=== PATIENT | male | born 1995 | race African-American/Black ===

== ENCOUNTER 2018-11-15 12:28 | Emergency (ER) | payer SELFPAY ==
[~2018-11-15] VITALS: Ht 167.6 cm; Wt 68.9 kg
[2018-11-15 12:48] VITALS: BP 132/77
[2018-11-15] MEDS ORDERED: IPRATRPIUM/ALBUTEROL 0.5/2.5MG 3 ML NEBU. NEB ONE (13:15)
[2018-11-15 13:50] LABS: INFLUENZA A PATIENT NEGATIVE (NEGATIVE); INFLUENZA B PATIENT NEGATIVE (NEGATIVE)
[2018-11-15] MEDS ORDERED: ONDANSETRON PF 4 MG/2 ML VIAL. IV ONE (14:15)
[2018-11-15] MEDS ORDERED: IV NORMAL SALINE 1000ML BAG 1,000 ML IV ONE (14:15)
[2018-11-15 14:26] LABS: BASO % 1 % (0-3); EOS % 0 % (0-3); HEMATOCRIT 44.2 % (39.0-53.0); HEMOGLOBIN 15.1 g/dL (13.0-17.5); LYMPH # 0.7 x10^3/uL (1.0-4.8); LYMPH % 11 % (24-48); MEAN CORPUSCULAR HEMOGLOBIN 33 pg (25-35); MEAN CORPUSCULAR HGB CONC 34 g/dL (31-37); MEAN CORPUSCULAR VOLUME 96 fL (79-100); MONO # 0.8 x10^3/uL (0.0-1.1); MONO % 12 % (0-9); NEUT # 4.9 x10^3uL (1.8-7.7); NEUT % 77 % (31-73); PLATELET COUNT 285 x10^3/uL (140-400); RED BLOOD COUNT 4.63 x10^6/uL (4.30-5.70); RED CELL DISTRIBUTION WIDTH 12.9 % (11.5-14.5); WHITE BLOOD COUNT 6.4 x10^3/uL (4.0-11.0)
[2018-11-15 14:35] LABS: CALCIUM 9.6 mg/dL (8.5-10.1); CREATININE 0.8 mg/dL (0.7-1.3); GFR 143.7; POTASSIUM 4.3 mmol/L (3.5-5.1)
[2018-11-15 14:40] LABS: ALBUMIN 4.4 g/dL (3.4-5.0); ALBUMIN/GLOBULIN RATIO 1.2 (1.0-1.7); TOTAL BILIRUBIN 0.3 mg/dL (0.2-1.0); TOTAL PROTEIN 8.2 g/dL (6.4-8.2)
[2018-11-15 15:24] LABS: AMYLASE 47 U/L (25-115); LIPASE 86 U/L (73-393)
[2018-11-15] MEDS ORDERED: diphenhydrAMINE 50 MG/ML VIAL IVP ONE (15:30)
[2018-11-15] MEDS ORDERED: methylPREDNISolone SOD SUCC PF 125 MG/2 ML VIAL. IV ONE (15:30)
[2018-11-15] MEDS ORDERED: IOHEXOL 300 MG/ML 100ML VIAL. IV ONE (16:00)
--- NOTE | 2018-11-15 16:16 | RAD ---
EXAM: Abdomen and pelvis CT with intravenous contrast. HISTORY: Abnormal liver enzymes laboratory values. TECHNIQUE: Computed tomographic images of the abdomen and pelvis were obtained following the administration of 75 cc Isovue 370 intravenous contrast. Multiplanar reformatting was performed. *One or more of the following individualized dose reduction techniques were utilized for this examination: 1. Automated exposure control. 2. Adjustment of the mA and/or kV according to patient size. 3. Use of iterative reconstruction technique. COMPARISON: None. FINDINGS: Evaluation of the lower thorax is unremarkable. No hepatic lesion is seen. The gallbladder, pancreas and adrenal glands are unremarkable. There are small splenules adjacent to the spleen. The kidneys are unremarkable. The appendix is surgically absent. There is mild colonic wall thickening likely due to relative under distention. No convincing colitis is seen. There is no bowel obstruction. The urinary bladder is unremarkable. There is no lymphadenopathy. There is no suspicious osseous lesion. IMPRESSION: No acute abdominal or pelvic finding. Electronically signed by: Esha Guzman MD (11/15/2018 4:12 PM) [id number]
[2018-11-15] MEDS ORDERED: ONDA4TAB12 PO (17:41)
--- NOTE | 2018-11-15 17:42 | PHYS DOC ---
Past Medical History Past Medical History: Asthma Past Surgical History: Appendectomy Alcohol Use: None Drug Use: None Adult General Chief Complaint Chief Complaint: FLU SYMPTOM HPI HPI Patient is a 22 year old male who presents with nausea that began today, and flu-like symptoms x 2 weeks. He denies earaches, but states he has had headaches , body aches and fever. He has been using OTC remedies with moderate results. Review of Systems Review of Systems Constitutional: See history of present Eyes: Denies change in visual acuity, redness, or eye pain [] HENT: Denies nasal congestion or sore throat [] Respiratory: See history of present illness Cardiovascular: No additional information not addressed in HPI [] GI: See history of present illness : Denies dysuria or hematuria [] Musculoskeletal: Denies back pain or joint pain [] Integument: Denies rash or skin lesions [] Neurologic: Denies headache, focal weakness or sensory changes [] Endocrine: Denies polyuria or polydipsia [] All other systems were reviewed and found to be within normal limits, except as documented in this note. Current Medications Current Medications Current Medications Medications (Trade) Dose Ordered Sig/Jojo Start Time Stop Time Status Last Admin Dose Admin Albuterol/ Ipratropium (Duoneb) 3 ml 1X ONCE 11/15/18 13:15 11/15/18 13:17 DC 11/15/18 13:27 3 ML Diphenhydramine HCl (Benadryl) 50 mg 1X ONCE 11/15/18 15:30 11/15/18 15:31 DC 11/15/18 15:47 50 MG Iohexol (Omnipaque 300 Mg/ml) 75 ml 1X ONCE 11/15/18 16:00 11/15/18 16:04 DC 11/15/18 16:01 75 ML Methylprednisolone Sodium Succinate (SOLU-Medrol 125MG VIAL) 125 mg 1X ONCE 11/15/18 15:30 11/15/18 15:31 DC 11/15/18 15:46 125 MG Ondansetron HCl (Zofran) 4 mg 1X ONCE 11/15/18 14:15 11/15/18 14:16 DC 11/15/18 14:21 4 MG Sodium Chloride 1,000 ml @ 1,000 mls/hr 1X ONCE 11/15/18 14:15 11/15/18 15:14 DC 11/15/18 14:21 1,000 MLS/HR Allergies Allergies Allergies Coded Allergies Type Severity Reaction Last Updated Verified iodine Allergy Intermediate Swelling 11/15/18 Yes Physical Exam Physical Exam Constitutional: Well developed, well nourished, no acute distress, non-toxic appearance. [] HENT: Normocephalic, atraumatic, bilateral external ears normal, oropharynx moist, no oral exudates, nose normal. [] Eyes: PERRLA, EOMI, conjunctiva normal, no discharge. [] Neck: Normal range of motion, no tenderness, supple, no stridor. [] Cardiovascular:Heart rate regular rhythm, no murmur [] Lungs & Thorax: Bilateral breath sounds clear to auscultation with no leases or rhonchi [] Abdomen: Bowel sounds normal, firm, mild generalized tenderness, no masses, no pulsatile masses. [] Skin: Warm, dry, no erythema, no rash. [] Back: No tenderness, no CVA tenderness. [] Extremities: No tenderness, no cyanosis, no clubbing, ROM intact, no edema. [] Neurologic: Alert and oriented X 3, normal motor function, normal sensory function, no focal deficits noted. [] Psychologic: Affect normal, judgement normal, mood normal. [] Current Patient Data Vital Signs Vital Signs Date Time Temp Pulse Resp B/P (MAP) Pulse Ox O2 Delivery O2 Flow Rate FiO2 11/15/18 13:27 97 Room Air 11/15/18 12:48 100.1 105 22 132/77 (95) 100.1 Lab Values Laboratory Tests Test 11/15/18 13:00 11/15/18 14:10 Influenza Type A Antigen Negative (NEGATIVE) Influenza Type B Antigen Negative (NEGATIVE) White Blood Count 6.4 x10^3/uL (4.0-11.0) Red Blood Count 4.63 x10^6/uL (4.30-5.70) Hemoglobin 15.1 g/dL (13.0-17.5) Hematocrit 44.2 % (39.0-53.0) Mean Corpuscular Volume 96 fL (79-100) Mean Corpuscular Hemoglobin 33 pg (25-35) Mean Corpuscular Hemoglobin Concent 34 g/dL (31-37) Red Cell Distribution Width 12.9 % (11.5-14.5) Platelet Count 285 x10^3/uL (140-400) Neutrophils (%) (Auto) 77 % (31-73) H Lymphocytes (%) (Auto) 11 % (24-48) L Monocytes (%) (Auto) 12 % (0-9) H Eosinophils (%) (Auto) 0 % (0-3) Basophils (%) (Auto) 1 % (0-3) Neutrophils # (Auto) 4.9 x10^3uL (1.8-7.7) Lymphocytes # (Auto) 0.7 x10^3/uL (1.0-4.8) L Monocytes # (Auto) 0.8 x10^3/uL (0.0-1.1) Eosinophils # (Auto) 0.0 x10^3/uL (0.0-0.7) Basophils # (Auto) 0.0 x10^3/uL (0.0-0.2) Sodium Level 137 mmol/L (136-145) Potassium Level 4.3 mmol/L (3.5-5.1) Chloride Level 97 mmol/L (98-107) L Carbon Dioxide Level 26 mmol/L (21-32) Anion Gap 14 (6-14) Blood Urea Nitrogen 9 mg/dL (8-26) Creatinine 0.8 mg/dL (0.7-1.3) Estimated GFR (Cockcroft-Gault) 143.7 BUN/Creatinine Ratio 11 (6-20) Glucose Level 91 mg/dL (70-99) Calcium Level 9.6 mg/dL (8.5-10.1) Total Bilirubin 0.3 mg/dL (0.2-1.0) Aspartate Amino Transferase (AST) 209 U/L (15-37) H Alanine Aminotransferase (ALT) 213 U/L (16-63) H Alkaline Phosphatase 67 U/L (46-116) Total Protein 8.2 g/dL (6.4-8.2) Albumin 4.4 g/dL (3.4-5.0) Albumin/Globulin Ratio 1.2 (1.0-1.7) Amylase Level 47 U/L (25-115) Lipase 86 U/L (73-393) Laboratory Tests 11/15/18 14:10 Laboratory Tests 11/15/18 14:10 EKG EKG [] Radiology/Procedures Radiology/Procedures [] PATIENT: PATTIE PEGUERO ACCOUNT: [id number] : 1995 LOCATION: ER AGE: 22 SEX: M EXAM STATUS: REG ER ORD. PHYSICIAN: ROSAMARIA VERAS APRN REASON: abdominal pain, elevated liver enzymes PROCEDURE: CT ABD PELV W/ IV CONTRST ONLY EXAM: Abdomen and pelvis CT with intravenous contrast. HISTORY: Abnormal liver enzymes laboratory values. TECHNIQUE: Computed tomographic images of the abdomen and pelvis were obtained following the administration of 75 cc Isovue 370 intravenous contrast. Multiplanar reformatting was performed. *One or more of the following individualized dose reduction techniques were utilized for this examination: 1. Automated exposure control. 2. Adjustment of the mA and/or kV according to patient size. 3. Use of iterative reconstruction technique. COMPARISON: None. FINDINGS: Evaluation of the lower thorax is unremarkable. No hepatic lesion is seen. The gallbladder, pancreas and adrenal glands are unremarkable. There are small splenules adjacent to the spleen. The kidneys are unremarkable. The appendix is surgically absent. There is mild colonic wall thickening likely due to relative under distention. No convincing colitis is seen. There is no bowel obstruction. The urinary bladder is unremarkable. There is no lymphadenopathy. There is no suspicious osseous lesion. IMPRESSION: No acute abdominal or pelvic finding. Electronically signed by: Esha Guzman MD (11/15/2018 4:12 PM) [facility] DICTATED and SIGNED BY: ESHA GUZMAN MD DATE: 11/15/18 1609 Course & Med Decision Making Course & Med Decision Making Pertinent Labs and Imaging studies reviewed. (See chart for details) []The patient is negative for influenza. The patient is elevated liver enzymes. Patient does state that he drinks fairly heavily. He was counseled to refrain from drinking alcohol and follow up with his primary care provider for a recheck. He is in agreement with this plan. Dragon Disclaimer Dragon Disclaimer This electronic medical record was generated, in whole or in part, using a voice recognition dictation system. Departure Departure Impression: Primary Impression: Nausea & vomiting Additional Impression: Elevated liver enzymes Disposition: 01 HOME, SELF-CARE Condition: STABLE Referrals: UNKNOWN PCP NAME (PCP) Patient Instructions: Liver Panel, Nausea and Vomiting Additional Instructions: Use the medications to control your nausea and increase your fluid intake. Follow-up with your primary care provider within the week for recheck. If worsening return to the emergency department. Scripts Ondansetron (ONDANSETRON ODT) 4 Mg Tab.rapdis 1 TAB PO PRN Q6-8HRS for nausea, #16 TAB Prov: ROSAMARIA VERAS APRN 11/15/18 Problem Qualifiers ROSAMARIA VERAS APRN Nov 15, 2018 17:42
== END 2018-11-15 17:50 | disposition home or self-care (01) ==
LOC: ER 12:28
DX: R11.2 Nausea with vomiting, unspecified (principal); R74.8 Abnormal levels of other serum enzymes; J45.909 Unspecified asthma, uncomplicated; Z90.89 Acquired absence of other organs; Z91.041 Radiographic dye allergy status
CPT/HCPCS: 36415; 74177; 80053; 82150; 83690; 85025; 87804; 94640; 96361; 96374; 96375; 99284; J1200; J2405; J2930; J7030; J7620; Q9967

== ENCOUNTER 2019-06-23 02:57 | Inpatient (IN) | payer SELFPAY ==
[~2019-06-23] VITALS: Ht 167.6 cm; Wt 71.5 kg
[~2019-06-23 02:57] MED LIST: ONDA4TAB12 PO
[2019-06-23] MEDS ORDERED: ONDANSETRON PF 4 MG/2 ML VIAL. IV PRN ×2 (03:15→11:45)
[2019-06-23] MEDS ORDERED: IV NORMAL SALINE 1000ML BAG 1,000 ML IV ONE ×2 (03:15→04:30)
[2019-06-23] MEDS ORDERED: levETIRAcetam 1,000 MG in IV DEXTROSE 5% 100ML 100 ML IV ONE (03:15)
[2019-06-23] MEDS ORDERED: ACETAMINOPHEN 325 MG TABLET. PO PRN (03:15)
[2019-06-23 03:27] LABS: BASO % 1 % (0-3); EOS # 0.1 x10^3/uL (0.0-0.7); EOS % 1 % (0-3); HEMATOCRIT 39.8 % (39.0-53.0); HEMOGLOBIN 13.6 g/dL (13.0-17.5); LYMPH # 1.2 x10^3/uL (1.0-4.8); LYMPH % 20 % (24-48); MEAN CORPUSCULAR HEMOGLOBIN 34 pg (25-35); MEAN CORPUSCULAR HGB CONC 34 g/dL (31-37); MEAN CORPUSCULAR VOLUME 100 fL (79-100); MONO # 0.8 x10^3/uL (0.0-1.1); MONO % 13 % (0-9); NEUT # 3.8 x10^3/uL (1.8-7.7); NEUT % 65 % (31-73); PLATELET COUNT 216 x10^3/uL (140-400); RED BLOOD COUNT 3.99 x10^6/uL (4.30-5.70); RED CELL DISTRIBUTION WIDTH 12.6 % (11.5-14.5); WHITE BLOOD COUNT 5.9 x10^3/uL (4.0-11.0)
[2019-06-23 03:37] LABS: CALCIUM 9.3 mg/dL (8.5-10.1); CREATININE 1.2 mg/dL (0.7-1.3); GFR 89.3; POTASSIUM 3.7 mmol/L (3.5-5.1)
--- NOTE | 2019-06-23 03:40 | PHYS DOC ---
Past Medical History Past Medical History: Asthma Past Surgical History: Appendectomy Smoking: Cigarettes Alcohol Use: Occasionally Drug Use: Marijuana Adult General Chief Complaint Chief Complaint: SEIZURE HPI HPI 23-year-old male presents via EMS with report of seizure-like activity which occurred just prior to arrival. Patient had just been discharged from emergency department for after seizure-like activity. No prior history of seizures. Patient had been fully worked up with negative CT scan. Patient had had a elevated lactic acid which improved after IV fluid hydration. There was concern patient had a true seizure. Patient was to follow-up as outpatient with neurology. Spouse reports waking at 0200 noting patient with tonic-clonic activity lasting approximately 1 minute. EMS was called. Patient did bite his tongue and have some bloody discharge from mouth. Denies vomiting. Denies loss of bladder. Review of Systems Review of Systems Constitutional: Denies fever or chills Eyes: Denies redness or eye pain HENT: Denies nasal congestion or sore throat; reports bit his tongue Respiratory: Denies cough or shortness of breath Cardiovascular: Denies chest pain or palpitations GI: Denies abdominal pain, nausea, or vomiting : Denies dysuria or hematuria Musculoskeletal: Denies back pain or joint pain Integument: Denies rash or skin lesions Neurologic: Denies headache, focal weakness or sensory changes; reports seizure- like activity Complete systems were reviewed and found to be within normal limits, except as documented in this note. Current Medications Current Medications Allergies Allergies Allergies Coded Allergies Type Severity Reaction Last Updated Verified iodine Allergy Intermediate Swelling 11/15/18 Yes Physical Exam Physical Exam Constitutional: Well developed, well nourished, no acute distress, non-toxic appearance HENT: Normocephalic, atraumatic, oropharynx moist, abrasion noted to right lateral tongue Eyes: PERRL, EOMI, conjunctiva normal, no discharge, no nystagmus Neck: Normal range of motion, no tenderness, supple no meningeal signs Cardiovascular: Heart rate normal, regular rhythm Lungs & Thorax: Bilateral breath sounds clear to auscultation, no wheezing Abdomen: Soft, no tenderness Skin: Warm, dry, no erythema, no rash Extremities: No tenderness, ROM intact, no edema Neurologic: Alert and oriented X 3, normal motor function, normal sensory function, no focal deficits noted Psychologic: Affect normal, judgement normal Current Patient Data Vital Signs Vital Signs Date Time Temp Pulse Resp B/P (MAP) Pulse Ox O2 Delivery O2 Flow Rate FiO2 06/23/19 02:57 98.1 70 16 135/81 (99) 92 Room Air 98.1 Lab Values EKG EKG [] Radiology/Procedures Radiology/Procedures [] Course & Med Decision Making Course & Med Decision Making Pertinent Lab studies reviewed. (See chart for details) Patient presents with seizure-like activity for which patient had recently been seen and evaluated in the emergency department. Spouse reports a second tonic-c lonic witnessed seizure like activity. Labs obtained and posted to chart. Lactic acid re-elevated despite normalizing prior to previous discharge. CPK increased. LFT elevation stable. Empiric Keppra initiated. Patient requiring admission for further evaluation and treatment. Discussed with Dr. Palm (hospitalist) who is in agreement with admission. Consultation to neurology keaton hdez. Discussed findings and plan with patient and family, who acknowledge understanding and agreement. Dragon Disclaimer Dragon Disclaimer This electronic medical record was generated, in whole or in part, using a voice recognition dictation system. Departure Departure Impression: Primary Impression: Seizure-like activity Additional Impressions: Failure of outpatient treatment Lactic acidosis Elevated CPK Elevated LFTs Disposition: ADMITTED INPATIENT Admitting Physician: NEENA James) Condition: STABLE Referrals: NO PCP (PCP) Problem Qualifiers MICK BELTRAN DO Jun 23, 2019 03:40
[2019-06-23 03:44] LABS: ALBUMIN 3.9 g/dL (3.4-5.0); ALBUMIN/GLOBULIN RATIO 1.1 (1.0-1.7); MAGNESIUM 2.1 mg/dL (1.8-2.4); TOTAL PROTEIN 7.3 g/dL (6.4-8.2)
[2019-06-23 04:37] VITALS: BP 142/78
[2019-06-23 07:00] VITALS: BP 148/88
--- NOTE | 2019-06-23 08:27 | PDOC2 ---
NEUROLOGY CONSULT Date of Admission Date of Admission DATE: 06/23/19 TIME: 08:22 Reason for Consult Reason for Consult: seizure Referring Physician Referring Physician: Dr. Palm Source Source: Chart review, Patient History of Present Illness History of Present Illness Patient is a 23-year-old right-handed male who has had 2 seizures. He came to emergency department last night with a seizure and was discharged, then returned early this morning with a second seizure. These were generalized convulsions and the second one did have tongue biting. There was postictal confusion. Patient admits to using marijuana and alcohol and is also under stress because of recent of his son and his mom 6 years ago. There is no history of stroke or head trauma. He is feeling better now. 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, occasionally uses marijuana and alcohol, no tobacco, has significant other Current Medications Current Medications Current Medications Sodium Chloride 1,000 ml @ 1,000 mls/hr 1X ONCE IV Last administered on at 03:28; Start 06/23/19 at 03:15; Stop 06/23/19 at 04:14; Status DC Levetiracetam 1000 mg/Dextrose 110 ml @ 440 mls/hr 1X ONCE IV Last administered on 06/23/19at 03:28; Start 06/23/19 at 03:15; Stop 06/23/19 at 03:29; Status DC Ondansetron HCl (Zofran) 4 mg PRN Q8HRS PRN IV NAUSEA/VOMITING; Start 06/23/19 at 03:15; Stop 06/24/19 at 03:14 Acetaminophen (Tylenol) 650 mg PRN Q4HRS PRN PO FEVER; Start 06/23/19 at 03:15; Stop 06/24/19 at 03:14 Lorazepam (Ativan Inj) 0.5 mg 1X ONCE IV Last administered on 06/23/19at 03:28; Start 06/23/19 at 03:15; Stop 06/23/19 at 03:16; Status DC Lorazepam (Ativan Inj) 0.5 mg PRN Q4HRS PRN IV TREMORS; Start 06/23/19 at 04:30 Sodium Chloride 1,000 ml @ 100 mls/hr 1X ONCE IV Last administered on 06/23/19at 04:39; Start 06/23/19 at 04:30; Stop 06/23/19 at 14:29 Active Scripts Active Ondansetron Odt (Ondansetron) 4 Mg Tab.rapdis 1 Tab PO PRN Q6-8HRS PRN Ondansetron Odt (Ondansetron) 4 Mg Tab.rapdis 1 Tab PO PRN Q6-8HRS Allergies Allergies: Coded Allergies: iodine (Verified Allergy, Intermediate, Swelling, 11/15/18) ROS Review of System Negative for fever, chills, weight loss, shortness of breath, chest pain, i ndigestion, hematochezia, melena, and dysuria. Full 14-point review of systems is negative. Physical Exam Physical Examination General: Well-developed, well-nourished black male in no acute distress HEENT: Normocephalic and�atraumatic. Temporal arteries�pulsatile and nontender.� Neck: Supple without bruit, no meningismus� Musculoskeletal: Stability:�see neurologic. Gait exam:�see neurologic. Tone:�see neurologic.�Strength:�see neurologic.� Neurological: Mental Status:�intact, orientation, memory, attention span/concentration, language, fund of knowledge normal. Cranial Nerves:�Pupils equal and reactive to light, extraocular movements are�intact, visual gardner are full to confrontation. Facial sensation is normal. There is no facial asymmetry. Vestibulo-ocular reflex is intact. Palate elevates and tongue protrudes in midline. All other cranial related problems are negative except as mentioned before.�Reflexes:�2+ and symmetric with flexor plantar responses. Motor:�5/5 strength with normal tone and bulk. Coordination:�Finger-nose finger and jpzy-bq-yrav testing are normal. Rapid alternating movements and fine finger movements are intact. Gait:�Normal, including tandem. Sensory:�Normal pinprick, vibration, light touch, proprioception.� Vitals VITALS Vital Signs Date Time Temp Pulse Resp B/P (MAP) Pulse Ox O2 Delivery O2 Flow Rate FiO2 06/23/19 07:00 98.5 80 16 148/88 (108) 100 Room Air 98.5 Labs Labs Laboratory Tests Test 06/23/19 03:10 06/23/19 04:54 White Blood Count 5.9 x10^3/uL (4.0-11.0) Red Blood Count 3.99 x10^6/uL (4.30-5.70) Hemoglobin 13.6 g/dL (13.0-17.5) Hematocrit 39.8 % (39.0-53.0) Mean Corpuscular Volume 100 fL (79-100) Mean Corpuscular Hemoglobin 34 pg (25-35) Mean Corpuscular Hemoglobin Concent 34 g/dL (31-37) Red Cell Distribution Width 12.6 % (11.5-14.5) Platelet Count 216 x10^3/uL (140-400) Neutrophils (%) (Auto) 65 % (31-73) Lymphocytes (%) (Auto) 20 % (24-48) Monocytes (%) (Auto) 13 % (0-9) Eosinophils (%) (Auto) 1 % (0-3) Basophils (%) (Auto) 1 % (0-3) Neutrophils # (Auto) 3.8 x10^3/uL (1.8-7.7) Lymphocytes # (Auto) 1.2 x10^3/uL (1.0-4.8) Monocytes # (Auto) 0.8 x10^3/uL (0.0-1.1) Eosinophils # (Auto) 0.1 x10^3/uL (0.0-0.7) Basophils # (Auto) 0.0 x10^3/uL (0.0-0.2) Sodium Level 136 mmol/L (136-145) Potassium Level 3.7 mmol/L (3.5-5.1) Chloride Level 100 mmol/L (98-107) Carbon Dioxide Level 21 mmol/L (21-32) Anion Gap 15 (6-14) Blood Urea Nitrogen 7 mg/dL (8-26) Creatinine 1.2 mg/dL (0.7-1.3) Estimated GFR (Cockcroft-Gault) 89.3 BUN/Creatinine Ratio 6 (6-20) Glucose Level 134 mg/dL (70-99) Lactic Acid Level 7.9 mmol/L (0.4-2.0) 2.1 mmol/L (0.4-2.0) Calcium Level 9.3 mg/dL (8.5-10.1) Magnesium Level 2.1 mg/dL (1.8-2.4) Total Bilirubin 1.0 mg/dL (0.2-1.0) Aspartate Amino Transf (AST/SGOT) 147 U/L (15-37) Alanine Aminotransferase (ALT/SGPT) 130 U/L (16-63) Alkaline Phosphatase 59 U/L (46-116) Creatine Kinase 911 U/L (39-308) Total Protein 7.3 g/dL (6.4-8.2) Albumin 3.9 g/dL (3.4-5.0) Albumin/Globulin Ratio 1.1 (1.0-1.7) Laboratory Tests Test 06/23/19 03:10 06/23/19 04:54 White Blood Count 5.9 x10^3/uL (4.0-11.0) Red Blood Count 3.99 x10^6/uL (4.30-5.70) Hemoglobin 13.6 g/dL (13.0-17.5) Hematocrit 39.8 % (39.0-53.0) Mean Corpuscular Volume 100 fL (79-100) Mean Corpuscular Hemoglobin 34 pg (25-35) Mean Corpuscular Hemoglobin Concent 34 g/dL (31-37) Red Cell Distribution Width 12.6 % (11.5-14.5) Platelet Count 216 x10^3/uL (140-400) Neutrophils (%) (Auto) 65 % (31-73) Lymphocytes (%) (Auto) 20 % (24-48) Monocytes (%) (Auto) 13 % (0-9) Eosinophils (%) (Auto) 1 % (0-3) Basophils (%) (Auto) 1 % (0-3) Neutrophils # (Auto) 3.8 x10^3/uL (1.8-7.7) Lymphocytes # (Auto) 1.2 x10^3/uL (1.0-4.8) Monocytes # (Auto) 0.8 x10^3/uL (0.0-1.1) Eosinophils # (Auto) 0.1 x10^3/uL (0.0-0.7) Basophils # (Auto) 0.0 x10^3/uL (0.0-0.2) Sodium Level 136 mmol/L (136-145) Potassium Level 3.7 mmol/L (3.5-5.1) Chloride Level 100 mmol/L (98-107) Carbon Dioxide Level 21 mmol/L (21-32) Anion Gap 15 (6-14) Blood Urea Nitrogen 7 mg/dL (8-26) Creatinine 1.2 mg/dL (0.7-1.3) Estimated GFR (Cockcroft-Gault) 89.3 BUN/Creatinine Ratio 6 (6-20) Glucose Level 134 mg/dL (70-99) Lactic Acid Level 7.9 mmol/L (0.4-2.0) 2.1 mmol/L (0.4-2.0) Calcium Level 9.3 mg/dL (8.5-10.1) Magnesium Level 2.1 mg/dL (1.8-2.4) Total Bilirubin 1.0 mg/dL (0.2-1.0) Aspartate Amino Transf (AST/SGOT) 147 U/L (15-37) Alanine Aminotransferase (ALT/SGPT) 130 U/L (16-63) Alkaline Phosphatase 59 U/L (46-116) Creatine Kinase 911 U/L (39-308) Total Protein 7.3 g/dL (6.4-8.2) Albumin 3.9 g/dL (3.4-5.0) Albumin/Globulin Ratio 1.1 (1.0-1.7) Images Images CT HEAD WO CONTRAST History: Seizure like activity Comparison/Correlation: None Findings: Axial images of the head were obtained without contrast. Ventricles are normal size. No intracranial hemorrhage, midline shift, or mass effect. Globes and optic nerves are unremarkable. Bony structures are unremarkable. Impression: No acute process. Assessment/Plan Assessment/Plan Impression: New seizures, precipitants include stress, alcohol, marijuana. Note elevated transaminases and lactic acid Recommendations: I discussed risks, benefits, alternatives, side effects, and will start the patient on levetiracetam. MRI of the brain Electroencephalogram Aim for discharge later today Patient counseled to not use alcohol or marijuana and also that he cannot drive until he has gone 6 months without a seizure. Thank you for letting me help with the patient's care. MIRA HYATT MD Jun 23, 2019 08:27
--- NOTE | 2019-06-23 09:23 | PDOC1 ---
History and Physical Date of Admission Date of Admission DATE: 06/23/19 TIME: 07:23 Identification/Chief Complaint Chief Complaint SEEN IN ER , EMS with report of seizure-like activity which occurred just prior to arrival. Patient had just been discharged from emergency department for after seizure-like activity. No prior history of seizures. Patient had been fully worked up with negative CT scan. Patient had had a elevated lactic acid which improved after IV fluid hydration. There was concern patient had a true seizure. [facility] Spouse reports waking at 0200 noting patient with tonic- clonic activity Past Medical History Past Medical History Past Medical History Past Medical History Past Medical History: Asthma Past Surgical History: Appendectomy Smoking: Cigarettes Alcohol Use: Occasionally Drug Use: Marijuana FHX HTN Pulmonary: Asthma CENTRAL NERVOUS SYSTEM: Seizure Past Surgical History Past Surgical History: Appendectomy Family History Family History: Hypertension Social History Smoke: <1 pack per day ALCOHOL: heavy Drugs: Marijuana Current Problem List Problem List Problems Medical Problems: (1) Elevated CPK Status: Acute (2) Elevated LFTs Status: Acute (3) Failure of outpatient treatment Status: Acute (4) Lactic acidosis Status: Acute (5) Seizure-like activity Status: Acute Current Medications Current Medications Current Medications Sodium Chloride 1,000 ml @ 1,000 mls/hr 1X ONCE IV Last administered on 06/23/19at 03:28; Start 06/23/19 at 03:15; Stop 06/23/19 at 04:14; Status DC Levetiracetam 1000 mg/Dextrose 110 ml @ 440 mls/hr 1X ONCE IV Last administered on 06/23/19at 03:28; Start 06/23/19 at 03:15; Stop 06/23/19 at 03:29; Status DC Ondansetron HCl (Zofran) 4 mg PRN Q8HRS PRN IV NAUSEA/VOMITING; Start 06/23/19 at 03:15; Stop 06/24/19 at 03:14 Acetaminophen (Tylenol) 650 mg PRN Q4HRS PRN PO FEVER; Start 06/23/19 at 03:15; Stop 06/24/19 at 03:14 Lorazepam (Ativan Inj) 0.5 mg 1X ONCE IV Last administered on 06/23/19at 03:28; Start 06/23/19 at 03:15; Stop 06/23/19 at 03:16; Status DC Lorazepam (Ativan Inj) 0.5 mg PRN Q4HRS PRN IV TREMORS; Start 06/23/19 at 04:30 Sodium Chloride 1,000 ml @ 100 mls/hr 1X ONCE IV Last administered on 06/23/19at 04:39; Start 06/23/19 at 04:30; Stop 06/23/19 at 14:29 Levetiracetam (Keppra) 500 mg BID PO ; Start 06/23/19 at 21:00 Active Scripts Active Ondansetron Odt (Ondansetron) 4 Mg Tab.rapdis 1 Tab PO PRN Q6-8HRS PRN Ondansetron Odt (Ondansetron) 4 Mg Tab.rapdis 1 Tab PO PRN Q6-8HRS Allergies Allergies: Coded Allergies: iodine (Verified Allergy, Intermediate, Swelling, 11/15/18) ROS Review of System Review of Systems Review of Systems Constitutional: Denies fever or chills Eyes: Denies redness or eye pain HENT: Denies nasal congestion or sore throat; reports bit his tongue Respiratory: Denies cough or shortness of breath Cardiovascular: Denies chest pain or palpitations GI: Denies abdominal pain, nausea, or vomiting : Denies dysuria or hematuria Musculoskeletal: Denies back pain or joint pain Integument: Denies rash or skin lesions Neurologic: Denies headache, focal weakness or sensory changes; reports seizure- like activity 14 PT systems were reviewed and found to be within normal limits, except as documented General: YES: Fatigue PSYCHOLOGICAL ROS: YES: Depression Respiratory: No: Cough, Hemoptysis, Orthopnea, Pleuritic Pain, Shortness of breath, SOB with excertion, Sputum Changes, Stridor, Tachypnea, Wheezing, Other Physical Exam Physical Exam Physical Exam Physical Exam Constitutional: Well developed, well nourished, no acute distress, non-toxic appearance HENT: Normocephalic, atraumatic, oropharynx moist, abrasion noted to right la teral tongue Eyes: PERRL, EOMI, conjunctiva normal, no discharge, no nystagmus Neck: Normal range of motion, no tenderness, supple no meningeal signs Cardiovascular: Heart rate normal, regular rhythm Lungs & Thorax: Bilateral breath sounds clear to auscultation, no wheezing Abdomen: Soft, no tenderness Skin: Warm, dry, no erythema, no rash Extremities: No tenderness, ROM intact, no edema Neurologic: Alert and oriented X 3, normal motor function, normal sensory functi on, no focal deficits noted Psychologic: Affect normal, judgement normal General: Alert, Oriented X3, Cooperative, No acute distress HEENT: Atraumatic, PERRLA, EOMI, Mucous membr. moist/pink Lungs: Clear to auscultation, Normal air movement Heart: RRR, no thrills Breasts: Not examined Abdomen: Soft Rectal Exam: not examined PELVIC: Examination not indicated Extremities: No clubbing, No cyanosis, No edema Skin: No rashes Neuro: Normal speech, Cranial nerves 3-12 NL Psych/Mental Status: Mental status NL Vitals Vitals Vital Signs Date Time Temp Pulse Resp B/P (MAP) Pulse Ox O2 Delivery O2 Flow Rate FiO2 06/23/19 07:00 98.5 80 16 148/88 (108) 100 Room Air 98.5 Labs Labs Laboratory Tests Test 06/23/19 03:10 06/23/19 04:54 White Blood Count 5.9 x10^3/uL (4.0-11.0) Red Blood Count 3.99 x10^6/uL (4.30-5.70) Hemoglobin 13.6 g/dL (13.0-17.5) Hematocrit 39.8 % (39.0-53.0) Mean Corpuscular Volume 100 fL (79-100) Mean Corpuscular Hemoglobin 34 pg (25-35) Mean Corpuscular Hemoglobin Concent 34 g/dL (31-37) Red Cell Distribution Width 12.6 % (11.5-14.5) Platelet Count 216 x10^3/uL (140-400) Neutrophils (%) (Auto) 65 % (31-73) Lymphocytes (%) (Auto) 20 % (24-48) Monocytes (%) (Auto) 13 % (0-9) Eosinophils (%) (Auto) 1 % (0-3) Basophils (%) (Auto) 1 % (0-3) Neutrophils # (Auto) 3.8 x10^3/uL (1.8-7.7) Lymphocytes # (Auto) 1.2 x10^3/uL (1.0-4.8) Monocytes # (Auto) 0.8 x10^3/uL (0.0-1.1) Eosinophils # (Auto) 0.1 x10^3/uL (0.0-0.7) Basophils # (Auto) 0.0 x10^3/uL (0.0-0.2) Sodium Level 136 mmol/L (136-145) Potassium Level 3.7 mmol/L (3.5-5.1) Chloride Level 100 mmol/L (98-107) Carbon Dioxide Level 21 mmol/L (21-32) Anion Gap 15 (6-14) Blood Urea Nitrogen 7 mg/dL (8-26) Creatinine 1.2 mg/dL (0.7-1.3) Estimated GFR (Cockcroft-Gault) 89.3 BUN/Creatinine Ratio 6 (6-20) Glucose Level 134 mg/dL (70-99) Lactic Acid Level 7.9 mmol/L (0.4-2.0) 2.1 mmol/L (0.4-2.0) Calcium Level 9.3 mg/dL (8.5-10.1) Magnesium Level 2.1 mg/dL (1.8-2.4) Total Bilirubin 1.0 mg/dL (0.2-1.0) Aspartate Amino Transf (AST/SGOT) 147 U/L (15-37) Alanine Aminotransferase (ALT/SGPT) 130 U/L (16-63) Alkaline Phosphatase 59 U/L (46-116) Creatine Kinase 911 U/L (39-308) Total Protein 7.3 g/dL (6.4-8.2) Albumin 3.9 g/dL (3.4-5.0) Albumin/Globulin Ratio 1.1 (1.0-1.7) Laboratory Tests Test 06/23/19 03:10 06/23/19 04:54 White Blood Count 5.9 x10^3/uL (4.0-11.0) Red Blood Count 3.99 x10^6/uL (4.30-5.70) Hemoglobin 13.6 g/dL (13.0-17.5) Hematocrit 39.8 % (39.0-53.0) Mean Corpuscular Volume 100 fL (79-100) Mean Corpuscular Hemoglobin 34 pg (25-35) Mean Corpuscular Hemoglobin Concent 34 g/dL (31-37) Red Cell Distribution Width 12.6 % (11.5-14.5) Platelet Count 216 x10^3/uL (140-400) Neutrophils (%) (Auto) 65 % (31-73) Lymphocytes (%) (Auto) 20 % (24-48) Monocytes (%) (Auto) 13 % (0-9) Eosinophils (%) (Auto) 1 % (0-3) Basophils (%) (Auto) 1 % (0-3) Neutrophils # (Auto) 3.8 x10^3/uL (1.8-7.7) Lymphocytes # (Auto) 1.2 x10^3/uL (1.0-4.8) Monocytes # (Auto) 0.8 x10^3/uL (0.0-1.1) Eosinophils # (Auto) 0.1 x10^3/uL (0.0-0.7) Basophils # (Auto) 0.0 x10^3/uL (0.0-0.2) Sodium Level 136 mmol/L (136-145) Potassium Level 3.7 mmol/L (3.5-5.1) Chloride Level 100 mmol/L (98-107) Carbon Dioxide Level 21 mmol/L (21-32) Anion Gap 15 (6-14) Blood Urea Nitrogen 7 mg/dL (8-26) Creatinine 1.2 mg/dL (0.7-1.3) Estimated GFR (Cockcroft-Gault) 89.3 BUN/Creatinine Ratio 6 (6-20) Glucose Level 134 mg/dL (70-99) Lactic Acid Level 7.9 mmol/L (0.4-2.0) 2.1 mmol/L (0.4-2.0) Calcium Level 9.3 mg/dL (8.5-10.1) Magnesium Level 2.1 mg/dL (1.8-2.4) Total Bilirubin 1.0 mg/dL (0.2-1.0) Aspartate Amino Transf (AST/SGOT) 147 U/L (15-37) Alanine Aminotransferase (ALT/SGPT) 130 U/L (16-63) Alkaline Phosphatase 59 U/L (46-116) Creatine Kinase 911 U/L (39-308) Total Protein 7.3 g/dL (6.4-8.2) Albumin 3.9 g/dL (3.4-5.0) Albumin/Globulin Ratio 1.1 (1.0-1.7) Images Images SEX: M EXAM STATUS: REG ER ORD. PHYSICIAN: MICK BELTRAN DO REASON: seizure like activity PROCEDURE: CT HEAD WO CONTRAST Examination: CT HEAD WO CONTRAST History: Seizure like activity Comparison/Correlation: None Findings: Axial images of the head were obtained without contrast. Ventricles are normal size. No intracranial hemorrhage, midline shift, or mass effect. Globes and optic nerves are unremarkable. Bony structures are unremarkable. Impression: No acute process. PQRS Compliance Statement: One or more of the following individualized dose reduction techniques were utilized for this examination: 1. Automated exposure control 2. Adjustment of the mA and/or kV according to patient size 3. Use of iterative reconstruction technique VTE Prophylaxis Ordered VTE Prophylaxis Devices: Yes VTE Pharmacological Prophylaxi: Yes Assessment/Plan Assessment/Plan IMPRESSION New seizures, precipitants include stress, alcohol, marijuana. elevated transaminases ELEVATED lactic acid, IMPROVED WITH HYDRATION TOBACCO ABUSE ALCOHOL ABUSE THC ABUSE PLAN ADMIT SEIZURE PRECAUTIONS NEUROLOGY CONSULT ALCOHOL WITHDRAWAL PRECAUTIONS DVT PROPHYLAXIS EEG URINE DRUG SCREEN 57 MIN PT EXAM, CHART REVIEW, > 50% OF TIME SPENT WITH EXAM, CHART REVIEW, PT CARE COORDINATION SUSAN ANTHONY MD Jun 23, 2019 09:23
[2019-06-23 10:55] VITALS: BP 137/65
[2019-06-23] MEDS ORDERED: cloNIDine HCL 0.1 MG TABLET PO PRN ×2 (11:45)
[2019-06-23] MEDS ORDERED: ACETAMINOPHEN 650 MG/20.3 ML SOLUTION. GT PRN (11:45)
[2019-06-23] MEDS ORDERED: ALBUTEROL SULFATE 2.5 MG/3 ML NEBU. NEB PRN (11:45)
[2019-06-23] MEDS ORDERED: LORazepam 0.5 MG TABLET PO PRN (11:45)
[2019-06-23] MEDS ORDERED: MAG HYDROX/ALUMINUM HYD/SIMETH 30 ML ORAL.SUSP PO PRN (11:45)
[2019-06-23] MEDS ORDERED: 0.9 % SODIUM CHLORIDE 10 ML DISP.SYRIN. IV PRN (11:45)
[2019-06-23] MEDS ORDERED: DOCUSATE SODIUM 100 MG CAPSULE. PO PRN (11:45)
[2019-06-23] MEDS ORDERED: LORazepam 1 MG TABLET PO PRN ×2 (11:45)
[2019-06-23] MEDS ORDERED: guaiFENesin ORAL 200 MG/10 ML LIQUID. PO PRN (11:45)
[2019-06-23] MEDS ORDERED: MULTIVIT INFUSN,ADULT 4,VIT K 10 ML, THIAMINE INJ 100 MG, FOLIC ACID INJ 1 MG in IV NOR... IV ONE (11:45)
--- NOTE | 2019-06-23 12:43 | PDOC2 ---
GI CONSULT Reason For Consult: Alcoholic hepatitis HPI: HPI: 23 y/o male admitted w/ seizures. Noted w/ elevated AST, ALT, lactic acid, and CK. He denies n/v, reflux/heartburn, dysphagia, abd pain, diarrhea, hematochezia, melena, change in appetite, and weight loss. Occasional constipation - resolves without treatment. No previous EGD or colonoscopy. No GB, pancreas, liver, or PUD history. No NSAIDs. Tox screen yesterday in ER +marijuana and +urine ethyl alcohol. This afternoon (with his aunt present), denies any alcohol for 1.5 months and also denies marijuana. Prior to that, had 2 beers daily but says he stopped. No mention on liver on CT done for abd pain and elevated LFTs in 11/2018. He asks if he can be discharged today. PMH: PMH: asthma, appendectomy FH: Family History: Other (mom from asthma) Social History: Drugs: Marijuana ROS: GEN: Denies fevers, chills, sweats HEENT: Denies blurred vision, sore throat CV: Denies chest pain RESP: Denies shortness of air, cough GI: Per HPI : Denies hematuria, dysuria ENDO: Denies weight changes NEURO: Denies confusion, dizziness MSK: Denies weakness, joint pain/swelling SKIN: Denies jaundice, pruritus Vitals: Vitals: Vital Signs Date Time Temp Pulse Resp B/P (MAP) Pulse Ox O2 Delivery O2 Flow Rate FiO2 06/23/19 10:55 98.5 69 16 137/65 (89) 98 Room Air 98.5 Labs: Labs: Laboratory Tests Test 06/23/19 03:10 06/23/19 04:54 White Blood Count 5.9 x10^3/uL (4.0-11.0) Red Blood Count 3.99 x10^6/uL (4.30-5.70) Hemoglobin 13.6 g/dL (13.0-17.5) Hematocrit 39.8 % (39.0-53.0) Mean Corpuscular Volume 100 fL (79-100) Mean Corpuscular Hemoglobin 34 pg (25-35) Mean Corpuscular Hemoglobin Concent 34 g/dL (31-37) Red Cell Distribution Width 12.6 % (11.5-14.5) Platelet Count 216 x10^3/uL (140-400) Neutrophils (%) (Auto) 65 % (31-73) Lymphocytes (%) (Auto) 20 % (24-48) Monocytes (%) (Auto) 13 % (0-9) Eosinophils (%) (Auto) 1 % (0-3) Basophils (%) (Auto) 1 % (0-3) Neutrophils # (Auto) 3.8 x10^3/uL (1.8-7.7) Lymphocytes # (Auto) 1.2 x10^3/uL (1.0-4.8) Monocytes # (Auto) 0.8 x10^3/uL (0.0-1.1) Eosinophils # (Auto) 0.1 x10^3/uL (0.0-0.7) Basophils # (Auto) 0.0 x10^3/uL (0.0-0.2) Sodium Level 136 mmol/L (136-145) Potassium Level 3.7 mmol/L (3.5-5.1) Chloride Level 100 mmol/L (98-107) Carbon Dioxide Level 21 mmol/L (21-32) Anion Gap 15 (6-14) Blood Urea Nitrogen 7 mg/dL (8-26) Creatinine 1.2 mg/dL (0.7-1.3) Estimated GFR (Cockcroft-Gault) 89.3 BUN/Creatinine Ratio 6 (6-20) Glucose Level 134 mg/dL (70-99) Lactic Acid Level 7.9 mmol/L (0.4-2.0) 2.1 mmol/L (0.4-2.0) Calcium Level 9.3 mg/dL (8.5-10.1) Magnesium Level 2.1 mg/dL (1.8-2.4) Total Bilirubin 1.0 mg/dL (0.2-1.0) Aspartate Amino Transf (AST/SGOT) 147 U/L (15-37) Alanine Aminotransferase (ALT/SGPT) 130 U/L (16-63) Alkaline Phosphatase 59 U/L (46-116) Creatine Kinase 911 U/L (39-308) Total Protein 7.3 g/dL (6.4-8.2) Albumin 3.9 g/dL (3.4-5.0) Albumin/Globulin Ratio 1.1 (1.0-1.7) Allergies: Coded Allergies: iodine (Verified Allergy, Intermediate, Swelling, 11/15/18) Medications: Current Medications Medications (Trade) Dose Ordered Sig/Jojo Route PRN Reason Start Time Stop Time Status Last Admin Dose Admin Sodium Chloride 1,000 ml @ 1,000 mls/hr 1X ONCE IV 06/23/19 03:15 06/23/19 04:14 DC 06/23/19 03:28 Levetiracetam 1000 mg/Dextrose 110 ml @ 440 mls/hr 1X ONCE IV 06/23/19 03:15 06/23/19 03:29 DC 06/23/19 03:28 Lorazepam (Ativan Inj) 0.5 mg 1X ONCE IV 06/23/19 03:15 06/23/19 03:16 DC 06/23/19 03:28 Sodium Chloride 1,000 ml @ 100 mls/hr 1X ONCE IV 06/23/19 04:30 06/23/19 14:29 06/23/19 04:39 Imaging: Imaging: Head CT 06/22 Impression: No acute process. Brain MRI 06/23 Impression: 1. No acute intracranial abnormality. Abd US 06/23 pending EEG 06/23 IMPRESSION: This electroencephalogram with the patient awake and asleep is within normal limits. There is no focal, paroxysmal, or epileptiform activity. PE: GEN: NAD HEENT: Atraumatic, PERRL LUNGS: CTAB HEART: RRR, ABD: NABS, S/ND/NT EXTREMITY: No edema SKIN: No rashes, no jaundice NEURO/PSYCH: A & O �3 A/P: A/P: Seizures Elevated AST and ALT - improved H/o alcohol -- Out of room - ?for brain MRI or EEG - will return later. AST and ALT improved from yesterday and also lower than when checked in 11/2018. Await abd US. DC per primary. MANI GUERRERO Jun 23, 2019 12:43
[2019-06-23] MEDS ORDERED: MULTIVIT INFUSN,ADULT 4,VIT K 10 ML, THIAMINE INJ 100 MG, FOLIC ACID INJ 1 MG in IV NOR... IV SCH (13:00)
[2019-06-23] MEDS ORDERED: GADOTERATE 7.5 MMOL/15ML VIAL. IVP ONE (13:00)
--- NOTE | 2019-06-23 13:49 | EEG ---
DATE OF SERVICE: 06/23/2019 EEG NUMBER: [id number] OBJECTIVE: The patient is a 23-year-old male with new onset seizure. DESCRIPTION: This is a digital study. Electrodes are placed according to the international 10-20 system. Bipolar and referential montages are available. Activation procedures typically include hyperventilation and intermittent photic stimulation. INTERPRETATION: The waking background consists of 9-10 Hz, 50-100 microvolt activity, symmetrically distributed over parietooccipital regions and reactive to eye opening. Hyperventilation and intermittent photic stimulation are noncontributory. Stage 2 sleep is achieved with normal electroencephalogram patterns. IMPRESSION: This electroencephalogram with the patient awake and asleep is within normal limits. There is no focal, paroxysmal, or epileptiform activity. Thank you for letting us help with the patient's care. MIRA HYATT MD DR: MILA/rao JOB#: [id number] / [id number] KENDALL Webb MD
--- NOTE | 2019-06-23 14:38 | RAD ---
BRAIN WO/W CONTRAST History: Seizure Technique: Multiplanar, multi sequential pre and postcontrast MR imaging was performed of the brain. Contrast: 14 mL Dotarem Comparison: Head CT June 22, 2019 Findings: No acute infarct. No intracranial hemorrhage. No mass effect. No hydrocephalus. Extra-axial spaces are unremarkable. No pathologic enhancement. No pathologic signal abnormality within the region of the bilateral hippocampal formations. No evidence of cortical dysplasia or heterotopic odom matter. Imaged orbits are unremarkable. Imaged paranasal sinuses and mastoid air cells are clear. Impression: 1. No acute intracranial abnormality. Electronically signed by: Prince Dacosta DO (06/23/2019 2:35 PM) [id number]
[2019-06-23 15:00] VITALS: BP 138/78
--- NOTE | 2019-06-23 15:07 | RAD ---
Examination: Ultrasound abdomen complete HISTORY: History of hepatitis COMPARISON: None available FINDINGS: The pancreas is not well-visualized due to bowel gas. The aorta, IVC are not well-visualized due to bowel gas Mild increased echogenicity identified in the liver likely hepatic steatosis. The liver measures 15 cm in length. No evidence of gallstones. The gallbladder wall thickness measures 1.8 mm. The common bile duct measures 2.2 mm in transverse dimension. The right kidney measures 11.2 x 6.0 x 5.0 cm. The left kidney measures 10.8 x 5.7 x 5.6 cm. The spleen measures 8.6 cm in length. IMPRESSION: 1. Increased echogenicity identified in the liver likely hepatic steatosis. Electronically signed by: Den Lewis MD (06/23/2019 3:04 PM) [place] [id number]
--- NOTE | 2019-06-23 15:55 | PDOC3 ---
Discharge Summary Date of Admission: Jun 22, 2019 Date of Discharge: Jun 23, 2019 Follow-Up: 3-5 days Admitting Diagnosis comment: VTE Prophylaxis Ordered VTE Prophylaxis Devices: Yes VTE Pharmacological Prophylaxi: Yes discharge dx Assessment/Plan IMPRESSION New seizures, precipitants include stress, alcohol, marijuana. elevated transaminases ELEVATED lactic acid, IMPROVED WITH HYDRATION TOBACCO ABUSE ALCOHOL ABUSE THC ABUSE PLAN ADMIT SEIZURE PRECAUTIONS NEUROLOGY CONSULT ALCOHOL WITHDRAWAL PRECAUTIONS DVT PROPHYLAXIS EEG URINE DRUG SCREEN no driving x 6 months 57 MIN PT EXAM, CHART REVIEW, > 50% OF TIME SPENT WITH EXAM, CHART REVIEW, PT CARE COORDINATION OBJECTIVE: The patient is a 23-year-old male with new onset seizure. DESCRIPTION: This is a digital study. Electrodes are placed according to the international 10-20 system. Bipolar and referential montages are available. Activation procedures typically include hyperventilation and intermittent photic stimulation. INTERPRETATION: The waking background consists of 9-10 Hz, 50-100 microvolt activity, symmetrically distributed over parietooccipital regions and reactive to eye opening. Hyperventilation and intermittent photic stimulation are noncontributory. Stage 2 sleep is achieved with normal electroencephalogram patterns. IMPRESSION: This electroencephalogram with the patient awake and asleep is within normal limits. There is no focal, paroxysmal, or epileptiform activity. FINAL DIAGNOSIS Problems Medical Problems: (1) Elevated CPK Status: Acute (2) Elevated LFTs Status: Acute (3) Failure of outpatient treatment Status: Acute (4) Lactic acidosis Status: Acute (5) Seizure-like activity Status: Acute Brief Hospital Course Mr. Easley is a 23 old [sex] who presented with [ thc induced seizure] CONDITION AT DISCHARGE: Improved Discharge Medications Current Medications Sodium Chloride 1,000 ml @ 1,000 mls/hr 1X ONCE IV Last administered on 06/23/19at 03:28; Start 06/23/19 at 03:15; Stop 06/23/19 at 04:14; Status DC Levetiracetam 1000 mg/Dextrose 110 ml @ 440 mls/hr 1X ONCE IV Last administered on 06/23/19at 03:28; Start 06/23/19 at 03:15; Stop 06/23/19 at 03:29; Status DC Ondansetron HCl (Zofran) 4 mg PRN Q8HRS PRN IV NAUSEA/VOMITING; Start 06/23/19 at 03:15; Stop 06/23/19 at 12:00; Status DC Acetaminophen (Tylenol) 650 mg PRN Q4HRS PRN PO FEVER; Start 06/23/19 at 03:15; Stop 06/24/19 at 03:14 Lorazepam (Ativan Inj) 0.5 mg 1X ONCE IV Last administered on 06/23/19at 03:28; Start 06/23/19 at 03:15; Stop 06/23/19 at 03:16; Status DC Lorazepam (Ativan Inj) 0.5 mg PRN Q4HRS PRN IV TREMORS; Start 06/23/19 at 04:30; Status Cancel Sodium Chloride 1,000 ml @ 100 mls/hr 1X ONCE IV Last administered on 06/23/19at 04:39; Start 06/23/19 at 04:30; Stop 06/23/19 at 14:29; Status DC Levetiracetam (Keppra) 500 mg BID PO ; Start 06/23/19 at 21:00 Multivitamins 10 ml/Thiamine HCl 100 mg/Folic Acid 1 mg/Sodium Chloride 1,011.2 ml @ 100 mls/ hr DAILY IV Last administered on 06/23/19at 15:04; Start 06/23/19 at 13:00; Stop 06/27/19 at 19:07 Multivitamins (Thera M Plus) 1 tab DAILY PO ; Start 06/28/19 at 09:00 Folic Acid (Folic Acid) 1 mg DAILY PO ; Start 06/28/19 at 09:00 Thiamine HCl 100 mg/Dextrose 51 ml @ 100 mls/hr DAILY IV ; Start 06/24/19 at 09:00; Stop 06/28/19 at 09:31; Status UNV Lorazepam (Ativan) 4 mg PRN Q1HR PRN PO For CIWA 8-14; Start 06/23/19 at 11:45 Lorazepam (Ativan) 8 mg PRN Q1HR PRN PO For CIWA 15 or greater; Start 06/23/19 at 11:45 Lorazepam (Ativan Inj) 2 mg PRN Q1HR PRN IV For CIWA 8-14; Start 06/23/19 at 11:45; Status Cancel Lorazepam (Ativan Inj) 4 mg PRN Q1HR PRN IV For CIWA 15 or greater; Start 06/23/19 at 11:45 Clonidine HCl (Catapres) 0.1 mg PRN Q1HR PRN PO SBP > 180 or DBP > 100, MRX3; Start 06/23/19 at 11:45 Lorazepam (Ativan Inj) 2 mg PRN Q15MIN PRN IV SEE COMMENTS; Start 06/23/19 at 11:45; Status UNV Lorazepam (Ativan Inj) 4 mg PRN Q15MIN PRN IV SEE COMMENTS; Start 06/23/19 at 11:45; Status UNV Sodium Chloride (Normal Saline Flush) 3 ml QSHIFT PRN IV AFTER MEDS AND BLOOD DRAWS; Start 06/23/19 at 11:45 Multivitamins 10 ml/Thiamine HCl 100 mg/Folic Acid 1 mg/Sodium Chloride 1,011.2 ml @ 125 mls/ hr 1X ONCE IV ; Start 06/23/19 at 11:45; Stop 06/23/19 at 19:50; Status UNV Ondansetron HCl (Zofran) 4 mg PRN Q4HRS PRN IV NAUSEA/VOMITING; Start 06/23/19 at 11:45 Acetaminophen (Tylenol) 650 mg PRN Q4HRS PRN GT TEMP OVER 100.4F OR MILD PAIN; Start 06/23/19 at 11:45 Al Hydroxide/Mg Hydroxide (Mylanta Plus Xs) 30 ml PRN DAILY PRN PO HEARTBURN / GAS; Start 06/23/19 at 11:45 Clonidine HCl (Catapres) 0.1 mg PRN Q6HRS PRN PO SBP>160 OR DBP>90; Start 06/23/19 at 11:45 Docusate Sodium (Colace) 100 mg PRN BID PRN PO CONSTIPATION; Start 06/23/19 at 11:45 Albuterol Sulfate (Ventolin Neb Soln) 2.5 mg PRN Q4HRS PRN NEB SHORTNESS OF BREATH Last administered on 06/23/19at 12:54; Start 06/23/19 at 11:45 Guaifenesin (Robitussin) 200 mg PRN Q4HRS PRN PO COUGH; Start 06/23/19 at 11:45 Lorazepam (Ativan) 0.5 mg PRN Q4HRS PRN PO ANXIETY / AGITATION; Start 06/23/19 at 11:45 Lorazepam (Ativan Inj) 2 mg PRN Q4HRS PRN IV ANXIETY / AGITATION; Start 06/23/19 at 11:45 Enoxaparin Sodium (Lovenox 40mg Syringe) 40 mg DAILY SQ ; Start 06/24/19 at 09:00 Thiamine Mononitrate (Vitamin B-1) 100 mg DAILY PO ; Start 06/28/19 at 09:00 Gadoterate Meglumine (Dotarem) 14.2 ml 1X ONCE IVP Last administered on 06/23/19at 13:44; Start 06/23/19 at 13:00; Stop 06/23/19 at 13:01; Status DC Active Scripts Active Ondansetron Odt (Ondansetron) 4 Mg Tab.rapdis 1 Tab PO PRN Q6-8HRS PRN Ondansetron Odt (Ondansetron) 4 Mg Tab.rapdis 1 Tab PO PRN Q6-8HRS Vital Signs Vital Signs Date Time Temp Pulse Resp B/P (MAP) Pulse Ox O2 Delivery O2 Flow Rate FiO2 06/23/19 15:00 98.5 67 16 138/78 (98) 99 Room Air 98.5 Labs Laboratory Tests Test 06/23/19 03:10 06/23/19 04:54 White Blood Count 5.9 x10^3/uL (4.0-11.0) Red Blood Count 3.99 x10^6/uL (4.30-5.70) Hemoglobin 13.6 g/dL (13.0-17.5) Hematocrit 39.8 % (39.0-53.0) Mean Corpuscular Volume 100 fL (79-100) Mean Corpuscular Hemoglobin 34 pg (25-35) Mean Corpuscular Hemoglobin Concent 34 g/dL (31-37) Red Cell Distribution Width 12.6 % (11.5-14.5) Platelet Count 216 x10^3/uL (140-400) Neutrophils (%) (Auto) 65 % (31-73) Lymphocytes (%) (Auto) 20 % (24-48) Monocytes (%) (Auto) 13 % (0-9) Eosinophils (%) (Auto) 1 % (0-3) Basophils (%) (Auto) 1 % (0-3) Neutrophils # (Auto) 3.8 x10^3/uL (1.8-7.7) Lymphocytes # (Auto) 1.2 x10^3/uL (1.0-4.8) Monocytes # (Auto) 0.8 x10^3/uL (0.0-1.1) Eosinophils # (Auto) 0.1 x10^3/uL (0.0-0.7) Basophils # (Auto) 0.0 x10^3/uL (0.0-0.2) Sodium Level 136 mmol/L (136-145) Potassium Level 3.7 mmol/L (3.5-5.1) Chloride Level 100 mmol/L (98-107) Carbon Dioxide Level 21 mmol/L (21-32) Anion Gap 15 (6-14) Blood Urea Nitrogen 7 mg/dL (8-26) Creatinine 1.2 mg/dL (0.7-1.3) Estimated GFR (Cockcroft-Gault) 89.3 BUN/Creatinine Ratio 6 (6-20) Glucose Level 134 mg/dL (70-99) Lactic Acid Level 7.9 mmol/L (0.4-2.0) 2.1 mmol/L (0.4-2.0) Calcium Level 9.3 mg/dL (8.5-10.1) Magnesium Level 2.1 mg/dL (1.8-2.4) Total Bilirubin 1.0 mg/dL (0.2-1.0) Aspartate Amino Transf (AST/SGOT) 147 U/L (15-37) Alanine Aminotransferase (ALT/SGPT) 130 U/L (16-63) Alkaline Phosphatase 59 U/L (46-116) Creatine Kinase 911 U/L (39-308) Total Protein 7.3 g/dL (6.4-8.2) Albumin 3.9 g/dL (3.4-5.0) Albumin/Globulin Ratio 1.1 (1.0-1.7) Laboratory Tests Test 06/23/19 03:10 06/23/19 04:54 White Blood Count 5.9 x10^3/uL (4.0-11.0) Red Blood Count 3.99 x10^6/uL (4.30-5.70) Hemoglobin 13.6 g/dL (13.0-17.5) Hematocrit 39.8 % (39.0-53.0) Mean Corpuscular Volume 100 fL (79-100) Mean Corpuscular Hemoglobin 34 pg (25-35) Mean Corpuscular Hemoglobin Concent 34 g/dL (31-37) Red Cell Distribution Width 12.6 % (11.5-14.5) Platelet Count 216 x10^3/uL (140-400) Neutrophils (%) (Auto) 65 % (31-73) Lymphocytes (%) (Auto) 20 % (24-48) Monocytes (%) (Auto) 13 % (0-9) Eosinophils (%) (Auto) 1 % (0-3) Basophils (%) (Auto) 1 % (0-3) Neutrophils # (Auto) 3.8 x10^3/uL (1.8-7.7) Lymphocytes # (Auto) 1.2 x10^3/uL (1.0-4.8) Monocytes # (Auto) 0.8 x10^3/uL (0.0-1.1) Eosinophils # (Auto) 0.1 x10^3/uL (0.0-0.7) Basophils # (Auto) 0.0 x10^3/uL (0.0-0.2) Sodium Level 136 mmol/L (136-145) Potassium Level 3.7 mmol/L (3.5-5.1) Chloride Level 100 mmol/L (98-107) Carbon Dioxide Level 21 mmol/L (21-32) Anion Gap 15 (6-14) Blood Urea Nitrogen 7 mg/dL (8-26) Creatinine 1.2 mg/dL (0.7-1.3) Estimated GFR (Cockcroft-Gault) 89.3 BUN/Creatinine Ratio 6 (6-20) Glucose Level 134 mg/dL (70-99) Lactic Acid Level 7.9 mmol/L (0.4-2.0) 2.1 mmol/L (0.4-2.0) Calcium Level 9.3 mg/dL (8.5-10.1) Magnesium Level 2.1 mg/dL (1.8-2.4) Total Bilirubin 1.0 mg/dL (0.2-1.0) Aspartate Amino Transf (AST/SGOT) 147 U/L (15-37) Alanine Aminotransferase (ALT/SGPT) 130 U/L (16-63) Alkaline Phosphatase 59 U/L (46-116) Creatine Kinase 911 U/L (39-308) Total Protein 7.3 g/dL (6.4-8.2) Albumin 3.9 g/dL (3.4-5.0) Albumin/Globulin Ratio 1.1 (1.0-1.7) Allergies Allergies Coded Allergies Type Severity Reaction Last Updated Verified iodine Allergy Intermediate Swelling 11/15/18 Yes Disposition/Orders: D/C to Home Patient Instructions d/c planning 57 min SUSAN ANTHONY MD Jun 23, 2019 15:55
[2019-06-23] MEDS ORDERED: MULT1TAB90 PO (16:00)
[2019-06-23] MEDS ORDERED: LEVE500T56 PO (16:00)
[2019-06-23] MEDS ORDERED: THIA100T22 PO (16:00)
[2019-06-23] MEDS ORDERED: FOLI1TAB16 PO (16:00)
--- NOTE | 2019-06-23 16:03 | DISCH ---
DISCHARGE INSTRUCTIONS Condition on Discharge Condition on Discharge: Guarded Activity After Discharge Activity Instructions for Disc: Activity as tolerated Lifting Instructions after Dis: No heavy lifting, No pulling or pushing Exercise Instruction after Dis: Walk 10 min, 3 x per day Driving Instructions after Dis: Do not drive, Do not drive today Weight Bearing Status after Di: As tolerated Diet after Discharge Diet after Discharge: Regular Liquid Texture: Thin Liquid Checks after Discharge Checks after discharge: Check blood press - daily Contacting the DR. after DC Call your doctor for: If your condition worsens SUASN ANTHONY MD Jun 23, 2019 16:03
[2019-06-23 16:49] LABS: BARBITURATES NEG (NEG); BENZODIAZEPINES NEG (NEG); CANNABINOIDS POS (NEG); COCAINE NEG (NEG); METHADONE NEG (NEG); OPIATES NEG (NEG); PHENCYCLIDINE NEG (NEG)
[2019-06-23 16:55] LABS: AMPHETAMINE/METHAMPHETAMINE NEG (NEG)
--- NOTE | 2019-06-23 18:42 | NUR ---
Discharge Note: Patient was discharged home with self care. Patients fiance at the bedside at the time of discharge education. Patients IV was discontinued without any complications per SARA. Patient was given discharge summary/instructions, follow-ups, prescriptions and educational material. Patients questions were answered. Patient was educated to stop drinking and smoking marijuana. Patient stated he understood. Patient was taken down to the main entrance via wheelchair with all personal belongings accompanied by SARA Whatley, where his fiance was waiting for him to take him home.
[2019-06-23] MEDS ORDERED: levETIRAcetam 500 MG TABLET PO SCH (21:00)
[2019-06-24] MEDS ORDERED: THIAMINE INJ 100 MG in IV DEXTROSE 5% 50 ML IV SCH (09:00)
[2019-06-24] MEDS ORDERED: ENOXAPARIN 40 MG/0.4 ML SYRINGE. SQ SCH (09:00)
[2019-06-28] MEDS ORDERED: THIAMINE 100 MG TABLET. PO SCH (09:00)
[2019-06-28] MEDS ORDERED: MULTIVITAMIN with MINERAL TABLET. PO SCH (09:00)
[2019-06-28] MEDS ORDERED: FOLIC ACID 1 MG TABLET. PO SCH (09:00)
== END 2019-06-23 18:42 | disposition home or self-care (01) | DRG 101 ==
LOC: ER 02:57 → 6 SOUTH 03:00
PROVIDERS: ADMIT Internal Medicine; ATTEND Internal Medicine
DX: R56.9 Unspecified convulsions (principal); F17.210 Nicotine dependence, cigarettes, uncomplicated; F12.10 Cannabis abuse, uncomplicated; F10.10 Alcohol abuse, uncomplicated; J45.909 Unspecified asthma, uncomplicated; K59.00 Constipation, unspecified; Z88.8 Allergy status to other drugs, medicaments and biological substances; Z90.49 Acquired absence of other specified parts of digestive tract; Z82.5 Family history of asthma and other chronic lower respiratory diseases; Z82.49 Family history of ischemic heart disease and other diseases of the circulatory system
CPT/HCPCS: 36415; 70553; 76700; 80053; 80307; 82550; 83605; 83735; 85025; 94640; 94760; 95816; 96374; A9575; J1953; J2060; J7030; J7613; 99285-25; G0378

== ENCOUNTER 2020-07-18 10:56 | Emergency (ER) | payer SELFPAY ==
[~2020-07-18] VITALS: Ht 167.6 cm; Wt 75.0 kg
[~2020-07-18 10:56] MED LIST changes: +FOLI1TAB16 PO; +LEVE500T56 PO; +MULT1TAB90 PO; +THIA100T22 PO
--- NOTE | 2020-07-18 11:39 | PHYS DOC ---
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 Patient states yesterday the pain was 10 out of 10 but has subsided to 4 out of 10. Patient describes the pain as sharp and intermittent. Denies anything specifically relieving the pain. He states he does not want to be given anything that will mess up his body. Patient reports he got tested for COVID-19 on Thursday because his children were not allowed to daycare without a negative test, he states his test was negative. Review of Systems: Review of Systems: Constitutional: Denies fever or chills. [] Eyes: Denies change in visual acuity. [] HENT: Denies nasal congestion or sore throat. [] Respiratory: Denies cough or shortness of breath. [] Cardiovascular: Reports chest pain GI: Denies abdominal pain, nausea, vomiting, bloody stools or diarrhea. [] : Denies dysuria. [] Musculoskeletal: Denies back pain or joint pain. [] Integument: Denies rash. [] Neurologic: Denies headache, focal weakness or sensory changes. [] Psychiatric: Denies depression or anxiety. [] Heart Score: HEART Score for Chest Pain: HEART Score for Chest Pain Response (Comments) Value History Slighlty/Non-Suspicious 0 ECG Normal 0 Age < 45 0 Risk Factors No Risk Factors 0 Troponin < Normal Limit 0 Total 0 Risk Factors: Risk Factors: DM, Current or recent (<one month) smoker, HTN, HLP, family history of CAD, obesity. Risk Scores: Score 0 - 3: 2.5% MACE over next 6 weeks - Discharge Home Score 4 - 6: 20.3% MACE over next 6 weeks - Admit for Clinical Observation Score 7 - 10: 72.7% MACE over next 6 weeks - Early Invasive Strategies Allergies: Allergies: Allergies Coded Allergies Type Severity Reaction Last Updated Verified iodine Allergy Intermediate Swelling 11/15/18 Yes Physical Exam: PE: Constitutional: Well developed, well nourished, no acute distress, non-toxic appearance. [] HENT: Normocephalic, atraumatic, bilateral external ears normal, oropharynx moist, no oral exudates, nose normal. [] Eyes: PERRLA, EOMI, conjunctiva normal, no discharge. [] Neck: Normal range of motion, no tenderness, supple, no stridor. [] Cardiovascular:Heart rate regular rhythm, no murmur [] Lungs & Thorax: Bilateral breath sounds clear to auscultation [] Abdomen: Bowel sounds normal, soft, no tenderness, no masses, no pulsatile masses. [] Skin: Warm, dry, no erythema, no rash. [] Back: No tenderness, no CVA tenderness. [] Extremities: No tenderness, no cyanosis, no clubbing, ROM intact, no edema. [] Neurologic: Alert and oriented X 3, normal motor function, normal sensory function, no focal deficits noted. [] Psychologic: Affect normal, judgement normal, mood normal. [] EKG: EKG: Interpreted by Dr. Valladares normal sinus rhythm HR 90, J point elevation V3-V5, no depression, Ekg similar to 06/22/2019 Radiology/Procedures: Radiology/Procedures: []PROCEDURE: PORTABLE CHEST 1V PORTABLE CHEST 1V History: Chest pain Comparison: None available Findings: Single view of the chest is submitted. There is no infiltrate, pneumothorax, or effusion. The pericardial cardiac silhouette is within normal limits in size. Impression: 1. There is no radiographic evidence of acute cardiopulmonary disease. Electronically signed by: Rafia No MD (07/18/2020 12:13 PM) [facility] DICTATED and SIGNED BY: RAFIA NO MD DATE: 07/18/20 1213 Course & Med Decision Making: Course & Med Decision Making Pertinent Labs and Imaging studies reviewed. (See chart for details) This is a 24-year-old male patient presenting to the ED today complaining of left-sided chest pain that began yesterday. EKG with no acute findings. Chest x-ray interpreted by radiologist as negative for any acute findings. Troponin is normal, CMP with elevated AST 163 and ALT 85, this is chronic. Patient is in no distress. Was discharged home. OTC pain relievers recommended. Follow-up with PCP and car wiper Reji Disclaimer: Reji Disclaimer: This electronic medical record was generated, in whole or in part, using a voice recognition dictation system. Departure Departure Impression: Primary Impression: Chest pain Qualified Codes: R07.9 - Chest pain, unspecified Additional Impression: Transaminitis Disposition: 01 DC HOME SELF CARE/HOMELESS Condition: STABLE Referrals: NO PCP (PCP) [id number] OLIVEIRA MD follow up in one week Patient Instructions: Chest Pain (Nonspecific) Additional Instructions: You were evaluated in the emergency room for chest pain. Your cardiac work-up is negative. You can take [id number] pain relievers as needed. Follow-up with your primary care doctor or the provided car wiper in the next 7 days. Your liver enzymes are chronically elevated. Follow up with your doctor for this TORRIE MCGEE APRN Jul 18, 2020 11:39
[2020-07-18] MEDS ORDERED: MORPHINE SULFATE 2 MG/ML VIAL. IV/SQ PRN (11:45)
[2020-07-18] MEDS ORDERED: ASPIRIN 325 MG TABLET PO ONE (11:45)
--- NOTE | 2020-07-18 11:54 | EKG ---
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
--- NOTE | 2020-07-18 12:16 | RAD ---
PORTABLE CHEST 1V History: Chest pain Comparison: None available Findings: Single view of the chest is submitted. There is no infiltrate, pneumothorax, or effusion. The pericardial cardiac silhouette is within normal limits in size. Impression: 1. There is no radiographic evidence of acute cardiopulmonary disease. Electronically signed by: Sunday Elizalde MD (07/18/2020 12:13 PM) [facility]
[2020-07-18 12:28] LABS: BASO # 0.1 x10^3/uL (0.0-0.2); BASO % 1 % (0-3); EOS % 0 % (0-3); HEMATOCRIT 39.9 % (39.0-53.0); HEMOGLOBIN 13.6 g/dL (13.0-17.5); LYMPH # 0.9 x10^3/uL (1.0-4.8); LYMPH % 17 % (24-48); MEAN CORPUSCULAR HEMOGLOBIN 34 pg (25-35); MEAN CORPUSCULAR HGB CONC 34 g/dL (31-37); MEAN CORPUSCULAR VOLUME 100 fL (79-100); MONO # 0.7 x10^3/uL (0.0-1.1); MONO % 13 % (0-9); NEUT # 3.6 x10^3/uL (1.8-7.7); NEUT % 69 % (31-73); PLATELET COUNT 287 x10^3/uL (140-400); RED BLOOD COUNT 3.98 x10^6/uL (4.30-5.70); RED CELL DISTRIBUTION WIDTH 13.2 % (11.5-14.5); WHITE BLOOD COUNT 5.2 x10^3/uL (4.0-11.0)
[2020-07-18 12:37] LABS: PROTHROMBIN TIME PATIENT 12.4 SEC (11.7-14.0)
[2020-07-18 12:41] LABS: CALCIUM 8.8 mg/dL (8.5-10.1); CREATININE 0.7 mg/dL (0.7-1.3); GFR 164.9
[2020-07-18 12:48] LABS: ALBUMIN/GLOBULIN RATIO 1.2 (1.0-1.7); TOTAL BILIRUBIN 0.3 mg/dL (0.2-1.0); TOTAL PROTEIN 7.4 g/dL (6.4-8.2)
[2020-07-18 13:17] VITALS: BP 112/66
== END 2020-07-18 14:32 | disposition home or self-care (01) ==
LOC: ER 10:56
DX: R07.89 Other chest pain (principal); R74.01 Elevation of levels of liver transaminase levels; J45.909 Unspecified asthma, uncomplicated; F17.200 Nicotine dependence, unspecified, uncomplicated; F12.90 Cannabis use, unspecified, uncomplicated; Z90.89 Acquired absence of other organs; Z91.041 Radiographic dye allergy status
CPT/HCPCS: 36415; 71045; 80053; 83735; 83880; 84443; 84484; 85025; 85610; 93005; 99285

== ENCOUNTER 2021-02-17 07:12 | Emergency (ER) | payer SELFPAY ==
[~2021-02-17] VITALS: Ht 167.6 cm; Wt 80.0 kg
[~2021-02-17 07:12] MED LIST changes: -MULT1TAB90 PO; +MULT1TAB92 PO
[2021-02-17] MEDS ORDERED: IV NORMAL SALINE 1000ML BAG 1,000 ML IV ONE (08:15)
[2021-02-17 08:30] LABS: BASO % 1 % (0-3); EOS # 0.1 x10^3/uL (0.0-0.7); EOS % 1 % (0-3); HEMOGLOBIN 13.9 g/dL (13.0-17.5); LYMPH # 0.8 x10^3/uL (1.0-4.8); LYMPH % 20 % (24-48); MEAN CORPUSCULAR HEMOGLOBIN 34 pg (25-35); MEAN CORPUSCULAR HGB CONC 35 g/dL (31-37); MEAN CORPUSCULAR VOLUME 99 fL (79-100); MONO # 0.8 x10^3/uL (0.0-1.1); MONO % 19 % (0-9); NEUT # 2.6 x10^3/uL (1.8-7.7); NEUT % 60 % (31-73); PLATELET COUNT 237 x10^3/uL (140-400); RED BLOOD COUNT 4.05 x10^6/uL (4.30-5.70); WHITE BLOOD COUNT 4.3 x10^3/uL (4.0-11.0)
[2021-02-17 08:39] LABS: CREATININE 0.7 mg/dL (0.7-1.3); GFR 163.7; POTASSIUM 3.8 mmol/L (3.5-5.1)
--- NOTE | 2021-02-17 08:40 | PHYS DOC ---
Past Medical History Past Medical History: Asthma, Seizure Past Surgical History: Appendectomy Smoking Status: Current Every Day Smoker Alcohol Use: Occasionally Drug Use: Marijuana General Adult EDM: Chief Complaint: SEIZURE HPI: HPI: Patient is a 25 year old [f__sex] who presents with [] Review of Systems: Review of Systems: Constitutional: Denies fever or chills Eyes: Denies redness or eye pain HENT: Denies nasal congestion or sore throat Respiratory: Denies cough or shortness of breath Cardiovascular: Denies chest pain or palpitations GI: Denies abdominal pain, nausea, or vomiting : Denies dysuria or hematuria Musculoskeletal: Denies back pain or joint pain Integument: Denies rash or skin lesions Neurologic: Denies headache, focal weakness or sensory changes Complete systems were reviewed and found to be within normal limits, except as documented in this note. Heart Score: C/O Chest Pain: N/A Current Medications: Current Medications Medications (Trade) Dose Ordered Sig/Jojo Start Time Stop Time Status Last Admin Dose Admin Levetiracetam 1000 mg/Dextrose 110 ml @ 440 mls/hr 1X ONCE 02/17/21 09:00 02/17/21 09:14 Sodium Chloride 1,000 ml @ 1,000 mls/hr 1X ONCE 02/17/21 08:15 02/17/21 09:14 Allergies: Allergies: Allergies Coded Allergies Type Severity Reaction Last Updated Verified iodine Allergy Intermediate Swelling 11/15/18 Yes Physical Exam: PE: Constitutional: Well developed, well nourished, no acute distress, non-toxic appearance HENT: Normocephalic, atraumatic Eyes: PERRL, EOMI, conjunctiva normal, no discharge Neck: Normal range of motion, no tenderness, supple Lungs & Thorax: No respiratory distress, equal chest rise and fall Abdomen: Soft, no tenderness Skin: Warm, dry, no erythema, no rash Back: No tenderness, no CVA tenderness Extremities: No tenderness, ROM intact, no edema Neurologic: Alert and oriented X 3, normal motor function, normal sensory function, no focal deficits noted Psychologic: Affect normal, judgment normal Current Patient Data: Vital Signs: Vital Signs Date Time Temp Pulse Resp B/P (MAP) Pulse Ox O2 Delivery O2 Flow Rate FiO2 02/17/21 07:41 98.2 99 20 147/107 (120) 98 Room Air 98.2 EKG: EKG: @0824 NSR at 84bpm, some baseline artifact, J point elevation in V2-V3, QRS 90ms, QT/QTc 358/426ms Compared to prior EKG per [facility] from 07/18/2020 without significant change. Radiology/Procedures: Radiology/Procedures: [] Course & Med Decision Making: Course & Med Decision Making Pertinent Labs and Imaging studies reviewed. (See chart for details) [] Dragon Disclaimer: Dragon Disclaimer: This electronic medical record was generated, in whole or in part, using a voice recognition dictation system. Departure Departure Impression: Primary Impression: Seizure-like activity Additional Impressions: Hypomagnesemia Marijuana abuse Disposition: 01 HOME / SELF CARE / HOMELESS Condition: STABLE Referrals: NO PCP (PCP) MIRA HYATT MD Patient Instructions: Alcohol and Drug Addiction, Finding Treatment, Alcohol, FAQs, Hypomagnesemia, Marijuana Abuse-Brief, Seizure, Adult, [id number] Additional Instructions: You must be seizure-free for 6 months or cleared by your neurologist before operating a motor vehicle or heavy machinery. Scripts Levetiracetam (KEPPRA) 500 Mg Tablet 1 TAB PO BID for 20 Days, #40 TAB 0 Refills Prov: MICK BELTRAN DO 02/17/21 MICK BELTRAN DO February 17, 2021 08:39
[2021-02-17 08:45] LABS: BILIRUBIN,URINE NEGATIVE (NEG); CLARITY,URINE CLEAR; COLOR,URINE YELLOW; NITRITE,URINE NEGATIVE (NEG); PROTEIN,URINE NEGATIVE (NEG-TRACE)
[2021-02-17 08:45] LABS: ALBUMIN 4.8 g/dL (3.4-5.0); ALBUMIN/GLOBULIN RATIO 1.7 (1.0-1.7); MAGNESIUM 1.7 mg/dL (1.8-2.4); TOTAL BILIRUBIN 0.4 mg/dL (0.2-1.0); TOTAL PROTEIN 7.7 g/dL (6.4-8.2)
[2021-02-17 08:54] LABS: BARBITURATES NEG (NEG); BENZODIAZEPINES NEG (NEG); CANNABINOIDS POS (NEG); COCAINE NEG (NEG); METHADONE NEG (NEG); OPIATES NEG (NEG); PHENCYCLIDINE NEG (NEG)
[2021-02-17 08:56] LABS: AMPHETAMINE/METHAMPHETAMINE NEG (NEG)
[2021-02-17 09:00] LABS: BACTERIA,URINE 0 /HPF (0-FEW); RBC,URINE 0 /HPF (0-2); WBC,URINE 0 /HPF (0-4)
[2021-02-17] MEDS ORDERED: levETIRAcetam 1,000 MG in IV DEXTROSE 5% 100ML 100 ML IV ONE (09:00)
[2021-02-17] MEDS ORDERED: MAGNESIUM CHLORIDE ER 64 MG TABLET.ER PO ONE (09:00)
[2021-02-17] MEDS ORDERED: diphenhydrAMINE 50 MG/ML VIAL ONE (09:22)
[2021-02-17] MEDS ORDERED: diphenhydrAMINE HCL 25 MG CAPSULE PO ONE (09:30)
[2021-02-17 09:38] LABS: % BANDS 2 % (0-9); % EOS 1 % (0-5); % LYMPHS 17 % (24-48); % MONOS 4 % (0-10); % SEGS 76 % (35-66); PLT ESTIMATE ADEQUATE (ADEQUATE)
[2021-02-17] MEDS ORDERED: LEVE500T56 PO (09:50)
[2021-02-17 09:55] VITALS: BP 143/93
--- NOTE | 2021-02-17 13:03 | EKG ---
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
== END 2021-02-17 09:57 | disposition home or self-care (01) ==
LOC: ER 07:12
DX: R56.9 Unspecified convulsions (principal); E83.42 Hypomagnesemia; F12.10 Cannabis abuse, uncomplicated; J45.909 Unspecified asthma, uncomplicated; Z90.89 Acquired absence of other organs
CPT/HCPCS: 36415; 80053; 80307; 81001; 82550; 83605; 83735; 85007; 85025; 93005; 96365; 99284; G0480; J1953; J7030; J7060; Q0163

== ENCOUNTER 2021-07-01 16:50 | Emergency (ER) | payer SELFPAY ==
[~2021-07-01] VITALS: Ht 172.7 cm; Wt 63.6 kg
[2021-07-01] MEDS ORDERED: IV NORMAL SALINE 1000ML BAG 1,000 ML IV ONE ×2 (17:15→18:15)
[2021-07-01 17:29] LABS: BASO % 1 % (0-3); EOS % 0 % (0-3); HEMATOCRIT 39.1 % (39.0-53.0); HEMOGLOBIN 13.6 g/dL (13.0-17.5); LYMPH # 0.5 x10^3/uL (1.0-4.8); LYMPH % 9 % (24-48); MEAN CORPUSCULAR HEMOGLOBIN 35 pg (25-35); MEAN CORPUSCULAR HGB CONC 35 g/dL (31-37); MEAN CORPUSCULAR VOLUME 101 fL (79-100); MONO # 0.6 x10^3/uL (0.0-1.1); MONO % 12 % (0-9); NEUT # 4.2 x10^3/uL (1.8-7.7); NEUT % 78 % (31-73); PLATELET COUNT 209 x10^3/uL (140-400); RED BLOOD COUNT 3.88 x10^6/uL (4.30-5.70); RED CELL DISTRIBUTION WIDTH 13.4 % (11.5-14.5); WHITE BLOOD COUNT 5.4 x10^3/uL (4.0-11.0)
--- NOTE | 2021-07-01 17:37 | PHYS DOC ---
Past Medical History Past Medical History: Asthma, Seizure (LUCIA RICARDO ELECTRON MICROSCOPIST) Past [facility] History: [facility] Smoking Status: Current Every Day Smoker Alcohol Use: Occasionally Drug Use: Marijuana (LUCIA RICARDO ELECTRON MICROSCOPIST) General Adult HPI: HPI: Patient is a 25 year old male who presents with per EMS with witnessed seizure- like activity for 1 to 2 minutes. EMS states when he got there he was slightly postictal. Patient is now alert and oriented x4. Patient fell hitting his face on the wood floor. Patient was last here on February 2021 with seizure-like activity. Patient was placed on Keppra at that time. Patient states he does not know what Keppra is and never followed up with any physician. Patient had a another prior episode for that in 2018 and again never followed up. Patient states he takes no medications daily. He denies headache, dizziness, vision change, abdominal pain, nausea, vomiting, diarrhea, fever, cough, chest pain, shortness of air, focal weakness, numbness or tingling, neck pain, back pain. He has a history of appendectomy, asthma, smoking, seizure, marijuana use, alcohol on weekends. Currently only has mild pain due to hitting his mouth on the floor and his bottom teeth went into his upper lip but it is only superficial laceration. Teeth are intact and not broken. Rates his mouth tenderness pain an 8 out of 10 at this time. (LUCIA RICARDO ELECTRON MICROSCOPIST) Review of Systems: Review of Systems: Constitutional: Denies fever or chills. [] Eyes: Denies change in visual acuity. [] HENT: Denies nasal congestion or sore throat. +Mouth pain [] Respiratory: Denies cough or shortness of breath. [] Cardiovascular: Denies chest pain or edema. [] GI: Denies abdominal pain, nausea, vomiting, bloody stools or diarrhea. [] : Denies dysuria. [] Musculoskeletal: Denies back pain or joint pain. [] Integument: Denies rash. [] Neurologic: Denies headache, focal weakness or sensory changes. +seizure[] Endocrine: Denies polyuria or polydipsia. [] Lymphatic: Denies swollen glands. [] Psychiatric: Denies depression or anxiety. [] (LUCIA RICARDO APRN) Heart Score: C/O Chest Pain: No (LUCIA RICARDO APRN) Allergies: Allergies: Allergies Coded Allergies Type Severity Reaction Last Updated Verified iodine Allergy Intermediate Swelling 11/15/18 Yes (LUCIA RICARDO APRN) Physical Exam: PE: Constitutional: Well developed, well nourished, no acute distress, non-toxic appearance. [] HENT: Normocephalic, atraumatic, bilateral external ears normal, oropharynx moist, no oral exudates, nose normal. Upper lip swelling with superficial inner upper lip cut. [] Eyes: PERRLA, EOMI, conjunctiva normal, no discharge. [] Neck: Normal range of motion, no tenderness, supple, no stridor. [] Cardiovascular:Heart rate regular rhythm, no murmur [] Lungs & Thorax: Bilateral breath sounds clear to auscultation [] Abdomen: Bowel sounds normal, soft, no tenderness, no masses, no pulsatile masses. [] Skin: Warm, dry, no erythema, no rash. Superficial laceration to upper inner lip. [] Back: No tenderness, no CVA tenderness. [] Extremities: No tenderness, no cyanosis, no clubbing, ROM intact, no edema. [] Neurologic: Alert and oriented X 3, normal motor function, normal sensory function, no focal deficits noted. [] Psychologic: Affect normal, judgement normal, mood normal. [] (LUCIA RICARDO APRN) EKG: EK and read by Dr Beltran as Sinus Rhythm with J point elevation that is the same as 02/2021 EKG. No STEMI (LUCIA RICARDO APRN) Radiology/Procedures: Radiology/Procedures: [] Impression: [facility] [address] [place], [place] [id number] IMAGING REPORT Signed PATIENT: PATTIE PEGUERO ACCOUNT: [id number] : 1995 LOCATION: ER AGE: 25 SEX: M EXAM STATUS: PRE ER ORD. PHYSICIAN: LUCIA RICARDO APRN REASON: SEIZURE, MOUTH INJURY PROCEDURE: CT HEAD AND CERVICAL SPINE WO Exam: CT head, maxillofacial and cervical spine INDICATION: Seizure, mildly injury TECHNIQUE: Sequential axial images through the head, face and cervical spine were obtained without the administration of IV contrast. Exposure: One or more of the following in the visualized dose reduction techniques were utilized for this examination: 1. Automated exposure control 2. Adjustment of the MA and/or KV according to patient size 3. Use of iterative of reconstructive technique Comparisons: None FINDINGS: Head: No focal parenchymal lesion or hemorrhage is identified. There is no midline shift or sulcal effacement. No acute vascular territory infarction is identified. Haskins-white distinction is preserved. The ventricular system is within normal limits without compression hydrocephalus. The basal cisterns are well maintained. Face: The visualized portions of the paranasal sinuses and mastoid air cells are well- pneumatized. No acute fractures. Mild soft tissue contusion in the upper lip. Cervical spine: Vertebral body heights and alignment are well-maintained. Fracture to the cervical spine is not identified. No significant spondylotic change in cervical spine. Visualized paraspinal soft tissues are unremarkable. IMPRESSION: 1. No acute intracranial abnormality. 2. Mild soft tissue contusion of the upper lip without underlying osseous abnormality. 3. Negative CT C-spine for acute traumatic injury. Electronically signed by: Grzegorz Magdaleno MD (07/01/2021 5:48 PM) [facility] DICTATED and SIGNED BY: GRZEGORZ MAGDALENO MD DATE: 07/01/21 [id number] (LUCIA RICARDO APRN) Course & Med Decision Making: Course & Med Decision Making Pertinent Labs and Imaging studies reviewed. (See chart for details) See HPI. Alert and oriented x4. Ambulatory steady gait. Speaks in full clear sentences. Skin pink warm and dry. Upper lip 2+ swelling with a superficial upper inner lip cut. Cap refill less than 2 seconds. Vital signs are within normal limits. Seizure precautions are on the bed. No broken teeth. He did not bite his tongue. He did not urinate on his pants. Patient is liver enzymes are elevated. Alcohol level is currently negative. Patient is asked about his alcohol intake. And he states that he does drink 2 cans of 12oz beer a day. He states that on weekends he drinks more. He states he has not drink in a day or 2. We discussed his alcohol use, his liver enzymes being elevated, and possible him having withdrawals and then having seizures. He states his understanding. I have talked to him about admission and how it is advised that we admit him so he can get neurology follow-up in the least watched overnight for withdrawal symptoms. He states he does not want to be admitted and he can stay with his girlfriend who can watch him. He states " I promised to follow-up this time". Patient knows that there is a risk for or disability from seizure activity and or alcohol abuse. He states his understanding. Patient is getting 2 L of normal saline in the ED. Spoken to Dr. Beltran about giving him a Keppra bolus of which we did upon his arrival before he knew about his alcohol abuse. I have also spoken to Dr. Green concerning patient's discharge home and the care plan. Patient is stable and in no distress. Patient states he is ready to leave. I will also give the patient information for RSI. [] (LUCIA RICARDO APRN) Dragon Disclaimer: Dragon Disclaimer: This electronic medical record was generated, in whole or in part, using a voice recognition dictation system. (LUCIA RICARDO APRN) Departure Departure Impression: Primary Impression: Seizure-like activity Additional Impressions: Elevated LFTs Elevated CPK Disposition: HOME / SELF CARE / HOMELESS Condition: STABLE Referrals: NO PCP (PCP) MIRA HYATT MD Patient Instructions: Alcohol Problems, Alcohol Withdrawal, Alcohol, FAQs, Seizure, Adult Additional Instructions: Follow-up with a primary care doctor or your neurologist I have referred you to. Stop drinking alcohol. If you have another seizure you need to return to the emergency room. Drink plenty of fluids. Scripts Levetiracetam (KEPPRA) 500 Mg Tablet 1 TAB PO BID for 30 Days, #60 TAB 0 Refills Prov: LUCIA RICARDO APRN 07/01/21 Attending Signature Attending Signature I have reviewed the PA/AIR SAMPLER's note and plan of care. I was available for consultation as needed during the patient's visit in the emergency department. I agree with the clinical impression, plan, and disposition. (MICK BELTRAN DO) LUCIA RICARDO APRN Jul 01, 2021 17:37 MICK BELTRAN DO Jul 02, 2021 14:10
[2021-07-01 17:40] LABS: CALCIUM 9.3 mg/dL (8.5-10.1); CREATININE 0.9 mg/dL (0.7-1.3); GFR 122.5; POTASSIUM 3.7 mmol/L (3.5-5.1)
[2021-07-01 17:46] LABS: ALBUMIN 4.3 g/dL (3.4-5.0); ALBUMIN/GLOBULIN RATIO 1.3 (1.0-1.7); TOTAL BILIRUBIN 0.6 mg/dL (0.2-1.0); TOTAL PROTEIN 7.7 g/dL (6.4-8.2)
--- NOTE | 2021-07-01 17:50 | RAD ---
Exam: CT head, maxillofacial and cervical spine INDICATION: Seizure, mildly injury TECHNIQUE: Sequential axial images through the head, face and cervical spine were obtained without th e administration of IV contrast. Exposure: One or more of the following in the visualized dose reduction techniques were utilized for this examination: 1. Automated exposure control 2. Adjustment of the MA and/or KV according to patient size 3. Use of iterative of reconstructive technique Comparisons: None FINDINGS: Head: No focal parenchymal lesion or hemorrhage is identified. There is no midline shift or sulcal effaceme nt. No acute vascular territory infarction is identified. Haskins-white distinction is preserved. The ventricular system is within normal limits without compression hydrocephalus. The basal cisterns are well maintained. Face: The visualized portions of the paranasal sinuses and mastoid air cells are well-pneumatized. No acute fractures. Mild soft tissue contusion in the upper lip. Cervical spine: Vertebral body heights and alignment are well-maintained. Fracture to the cervical spine is not identified. No significant spondylotic change in cervical spine. Visualized paraspinal soft tissues are unremarkable. IMPRESSION: 1. No acute intracranial abnormality. 2. Mild soft tissue contusion of the upper lip without underlying osseous abnormality. 3. Negative CT C-spine for acute traumatic injury. Electronically signed by: Grzegorz Arboleda MD (07/01/2021 5:48 PM) BRAULIO
[2021-07-01] MEDS ORDERED: levETIRAcetam 1,000 MG in IV DEXTROSE 5% 100ML 100 ML IV ONE (18:00)
[2021-07-01 18:37] VITALS: BP 134/73
[2021-07-01] MEDS ORDERED: LEVE500T56 PO (18:43)
[2021-07-01 18:46] LABS: BARBITURATES NEG (NEG); BENZODIAZEPINES NEG (NEG); CANNABINOIDS POS (NEG); COCAINE NEG (NEG); METHADONE NEG (NEG); OPIATES NEG (NEG); PHENCYCLIDINE NEG (NEG)
[2021-07-01 18:47] LABS: AMPHETAMINE/METHAMPHETAMINE NEG (NEG)
--- NOTE | 2021-07-02 18:35 | EKG ---
[facility] [address] [place] [address] Test Date: 2021-07-01 Test Time: 17:03:54 Pat Name: PATTIE PEGUERO Department: Room: Gender: M Training Personnel Supervisor: : 1995 Requested By: LUCIA RICARDO Order Number: [id number] Reading MD: Measurements Intervals [place] Rate: 74 P: -18 [place]: 124 QRS: 51 QRSD: 90 T: 57 QT: 368 QTc: 409 Interpretive Statements No previous ECG available for comparison
== END 2021-07-01 20:06 | disposition home or self-care (01) ==
LOC: ER 16:50
DX: R56.9 Unspecified convulsions (principal); R79.89 Other specified abnormal findings of blood chemistry; R74.8 Abnormal levels of other serum enzymes; R51.9 Headache, unspecified; M54.2 Cervicalgia; J45.909 Unspecified asthma, uncomplicated; F17.200 Nicotine dependence, unspecified, uncomplicated; Z88.8 Allergy status to other drugs, medicaments and biological substances
CPT/HCPCS: 36415; 70450; 70486; 72125; 80053; 80307; 82550; 83690; 83735; 84484; 85025; 93005; 96365; 99285; G0480; J1953; J7030; J7060; 96361

== ENCOUNTER 2021-07-25 08:12 | Emergency (ER) | payer SELFPAY ==
[~2021-07-25] VITALS: Ht 167.6 cm; Wt 73.6 kg
--- NOTE | 2021-07-25 08:19 | PHYS DOC ---
Past Medical History Past Medical History: Asthma, Seizure Additional Past Medical Histor: Seizures in past, no medical dx Past Surgical History: Appendectomy Smoking Status: Current Every Day Smoker Alcohol Use: Occasionally Drug Use: Marijuana General Adult EDM: Chief Complaint: NAUSEA/VOMITING/DIARRHEA HPI: HPI: Patient is a 25 year old male here with nausea vomiting symptoms since yesterday, and he developed diarrhea starting this morning. Every time he tries to eat or drink anything, he vomits. He is try to drink water all morning, and he vomits almost immediately. He he reports generalized abdominal cramping just prior to onset of vomiting or diarrhea symptoms. No focal abdominal pain. No persistent abdominal pain. No hematemesis. No hematochezia or melena. He denies fevers. He does report some chills with active nausea and vomiting symptoms. No recent reported travel. No known sick contacts. No recent antibiotic use. He has had a previous appendectomy. No history of bowel obstruction. Review of Systems: Review of Systems: Constitutional: Denies fever. He does report chills. HENT: Denies nasal congestion or sore throat. [] Respiratory: Denies cough or shortness of breath. [] Cardiovascular: Denies chest pain or edema. [] GI: Reports abdominal cramping, nausea, vomiting, diarrhea. Denies hematemesis, hematochezia or melena. : Denies urinary symptoms. Musculoskeletal: Denies back pain or joint pain. [] Integument: Denies rash. [] Neurologic: Denies headache, focal weakness or sensory changes. [] Psychiatric: Denies depression or anxiety. [] Heart Score: C/O Chest Pain: No Risk Factors: Risk Factors: DM, Current or recent (<one month) smoker, HTN, HLP, family history of CAD, obesity. Risk Scores: Score 0 - 3: 2.5% MACE over next 6 weeks - Discharge Home Score 4 - 6: 20.3% MACE over next 6 weeks - Admit for Clinical Observation Score 7 - 10: 72.7% MACE over next 6 weeks - Early Invasive Strategies Allergies: Allergies: Allergies Coded Allergies Type Severity Reaction Last Updated Verified iodine Allergy Intermediate Swelling 11/15/18 Yes Physical Exam: PE: Constitutional: Well developed, well nourished, no acute distress, non-toxic appearance. He does appear to be uncomfortable. HENT: Normocephalic, atraumatic, bilateral external ears normal, mucous membranes are moist. Oropharynx is patent and clear. Eyes: Sclera are clear and anicteric. Neck: Normal range of motion, no tenderness, supple, trachea is midline. Cardiovascular:Heart rate regular rhythm, +2 radial and posterior tibial pulses bilaterally. Lungs & Thorax: Bilateral breath sounds clear to auscultation [] Abdomen: Abdomen is soft, nondistended, no tenderness to palpation. Bowel sounds present and normal. No palpable mass or organomegaly. No CVA tenderness. No flank or abdominal ecchymoses. Skin: Warm, dry, no erythema, no rash. No jaundice. Back: No tenderness, no CVA tenderness. [] Extremities: No tenderness, no cyanosis, no clubbing, ROM intact, no edema. [] Neurologic: Alert and oriented X 3, normal motor function, ambulatory with a steady gait. Speech is clear and fluent. Psychologic: Affect normal, judgement normal, mood normal. He is pleasant and cooperative. EKG: EKG: [] Radiology/Procedures: Radiology/Procedures: [] Course & Med Decision Making: Course & Med Decision Making Pertinent Labs and Imaging studies reviewed. (See chart for details) The patient is given IV fluid boluses. He is given IV Zofran, IV Toradol and IM Bentyl. He is feeling much better. No diarrhea produced here. No further vomiting. He reports feeling much better. I have discussed the findings, differential diagnosis and plan of care with him. No current indication for any imaging. He has no subjective abdominal pain at present, he has a benign, nonsurgical abdominal exam. I discussed home care instructions, recommended clear fluids and a bland diet. I recommended cessation of alcohol and marijuana use as well. Return precautions are given. He is comfortable with the plan for discharge Dragon Disclaimer: Reji Disclaimer: This electronic medical record was generated, in whole or in part, using a voice recognition dictation system. Departure Departure Impression: Primary Impression: Abdominal cramping Additional Impression: Nausea vomiting and diarrhea Disposition: 01 HOME / SELF CARE / HOMELESS Condition: STABLE Referrals: NO PCP (PCP) Patient Instructions: Viral Gastroenteritis Additional Instructions: Use the prescribed medication as needed/as directed. Please drink plenty of clear fluids. Eat a bland diet. Avoid using alcohol, avoid smoking marijuana. Return to the ER for more severe or persistent abdominal pain, vomiting blood, fever of 100.4 or higher, bloody stools, weakness, severe dizziness or any other concerns. Follow-up with your primary care physician. Scripts Dicyclomine Hcl (DICYCLOMINE HCL) 10 Mg Capsule 1 CAP PO TID for abdominal cramping, #20 CAP 11 Refills Prov: KENYETTA PATEL DO 07/25/21 Ondansetron Hcl (ZOFRAN) 4 Mg Tablet 4 MG PO PRN TID PRN for VOMITING, #20 EA nausea/vomiting Prov: KENYETTA PATEL DO 07/25/21 KENYETTA PATEL DO Jul 25, 2021 08:19
[2021-07-25] MEDS ORDERED: KETOROLAC 15 MG/ML VIAL. IVP ONE (08:45)
[2021-07-25] MEDS ORDERED: ONDANSETRON PF 4 MG/2 ML VIAL. IVP ONE (08:45)
[2021-07-25] MEDS ORDERED: IV NORMAL SALINE 1000ML BAG 1,000 ML IV ONE ×2 (08:45→09:45)
[2021-07-25] MEDS ORDERED: DICYCLOMINE 20 MG/2 ML VIAL. IM ONE (08:45)
[2021-07-25 09:00] LABS: BASO % 1 % (0-3); EOS % 0 % (0-3); HEMATOCRIT 43.4 % (39.0-53.0); HEMOGLOBIN 14.9 g/dL (13.0-17.5); LYMPH # 0.6 x10^3/uL (1.0-4.8); LYMPH % 12 % (24-48); MEAN CORPUSCULAR HEMOGLOBIN 34 pg (25-35); MEAN CORPUSCULAR HGB CONC 34 g/dL (31-37); MEAN CORPUSCULAR VOLUME 100 fL (79-100); MONO # 0.8 x10^3/uL (0.0-1.1); MONO % 16 % (0-9); NEUT # 3.9 x10^3/uL (1.8-7.7); NEUT % 72 % (31-73); PLATELET COUNT 280 x10^3/uL (140-400); RED BLOOD COUNT 4.37 x10^6/uL (4.30-5.70); RED CELL DISTRIBUTION WIDTH 13.1 % (11.5-14.5); WHITE BLOOD COUNT 5.4 x10^3/uL (4.0-11.0)
[2021-07-25 09:13] LABS: ALBUMIN 4.8 g/dL (3.4-5.0); ALBUMIN/GLOBULIN RATIO 1.2 (1.0-1.7); CALCIUM 9.9 mg/dL (8.5-10.1); CREATININE 0.9 mg/dL (0.7-1.3); GFR 122.5; MAGNESIUM 1.8 mg/dL (1.8-2.4); POTASSIUM 3.7 mmol/L (3.5-5.1); TOTAL BILIRUBIN 0.9 mg/dL (0.2-1.0); TOTAL PROTEIN 8.9 g/dL (6.4-8.2)
[2021-07-25 10:12] LABS: BILIRUBIN,URINE SMALL (NEG); CLARITY,URINE CLEAR; COLOR,URINE AMBER; NITRITE,URINE NEGATIVE (NEG); PROTEIN,URINE >=300 mg/dL (NEG-TRACE)
[2021-07-25 10:23] LABS: BACTERIA,URINE 0 /HPF (0-FEW); HYALINE CASTS, URINE FEW /HPF; RBC,URINE 0 /HPF (0-2); WBC,URINE OCC /HPF (0-4)
[2021-07-25 10:30] VITALS: BP 137/80
[2021-07-25] MEDS ORDERED: ONDA4TAB7 PO (10:34)
[2021-07-25] MEDS ORDERED: DICY10CA3 PO (10:36)
== END 2021-07-25 11:03 | disposition home or self-care (01) ==
LOC: ER 08:12
DX: R11.2 Nausea with vomiting, unspecified (principal); R19.7 Diarrhea, unspecified; R10.84 Generalized abdominal pain; J45.909 Unspecified asthma, uncomplicated; F17.200 Nicotine dependence, unspecified, uncomplicated; Z90.89 Acquired absence of other organs; Z88.8 Allergy status to other drugs, medicaments and biological substances
CPT/HCPCS: 36415; 80053; 81001; 83690; 83735; 85025; 96361; 96372; 96374; 96375; 99284; J0500; J1885; J2405; J7030

== ENCOUNTER 2022-01-13 18:27 | Emergency (ER) | payer SELFPAY ==
[~2022-01-13] VITALS: Ht 170.2 cm; Wt 70.0 kg
[~2022-01-13 18:27] MED LIST changes: +DICY10CA3 PO; +ONDA4TAB7 PO
[2022-01-13 21:29] VITALS: BP 147/82
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
== END 2022-01-13 22:12 | disposition home or self-care (01) ==
LOC: ER 18:27
DX: S01.432A Puncture wound without foreign body of left cheek and temporomandibular area, initial encounter (principal); F17.200 Nicotine dependence, unspecified, uncomplicated; J45.909 Unspecified asthma, uncomplicated; W34.09XA Accidental discharge from other specified firearms, initial encounter; Y93.89 Activity, other specified; Y92.89 Other specified places as the place of occurrence of the external cause; Y99.8 Other external cause status
CPT/HCPCS: 99281